=== PATIENT | female | born 1955 | race Caucasian/White ===

== ENCOUNTER 2017-02-13 21:29 | Inpatient (IN) | payer MEDICARE, OTHER ==
[~2017-02-13] VITALS: Ht 162.6 cm; Wt 68.3 kg
[~2017-02-13 21:29] MED LIST: ALBU90OI61 INH; ASPI81CH PO; ASPI81EC PO; CHOL10002; CILO100 PO; CILO50; CYAN100 PO; Complete Senio1 EACH PO; FLUSAL2505 INH; HYDACE5 PO; LACO50TA2 PO; LAMICTAL ODT200 MG PO; LAMO100 PO; LAMO25; Lamictal200 MG PO; Norco 5-325 Ta1 EACH PO; PLETAL100 MG PO; PRED10 PO; Prednisone10 M1 PO; SIMV5; SIMV80 PO; TIOT18; VITAMIN D-32000 UNI1 PO; Vimpat150 MG PO; [UNRECOGNIZED DRUG - REMARK]
[2017-02-13] MEDS ORDERED: CYAN500 PO (21:52)
[2017-02-13 22:18] LABS: BASOPHILS ABSOLUTE AUTO 0.02 K/mm3 (0.00-0.23); BASOPHILS PERCENT AUTO 0 % (0-2); EOSINOPHILS ABSOLUTE AUTO 0.05 K/mm3 (0.00-0.68); EOSINOPHILS PERCENT AUTO 0 % (0-6); Hematocrit 41.6 % (33.0-51.0); Hemoglobin 14.4 g/dL (11.5-16.0); IMMATURE GRAN ABSOLUTE AUTO 0.05 K/mm3 (0.00-0.10); IMMATURE GRAN PERCENT AUTO 0 % (0-1); LYMPHOCYTES ABSOLUTE AUTO 1.84 K/mm3 (0.84-5.20); LYMPHOCYTES PERCENT AUTO 14 % (21-46); MONOCYTES ABSOLUTE AUTO 1.78 K/mm3 (0.16-1.47); MONOCYTES PERCENT AUTO 14 % (4-13); Mean Corpuscular HGB 32.3 pg (26.0-34.0); Mean Corpuscular HGB Conc 34.6 g/dL (31.5-36.5); Mean Corpuscular Volume 93 fL (80-100); Mean Platelet Volume 10.8 fL (9.1-12.4); NEUTROPHILS ABSOLUTE AUTO 9.29 K/mm3 (1.96-9.15); NEUTROPHILS PERCENT AUTO 71 % (41-73); Platelet Count 196 K/mm3 (150-400); RDW Coefficient Variation 12.9 % (11.7-14.2); RDW Standard Deviation 43.9 fL (35.1-46.3); Red Blood Cell Count 4.46 M/mm3 (3.80-5.20); White Blood Cell Count 13.03 K/mm3 (4.00-11.30)
[2017-02-13 22:27] LABS: Alanine Aminotransfer (ALT/SGP 22 U/L (12-78); Albumin, Blood 3.7 g/dL (3.4-5.0); Alk Phos 70 U/L (50-136); Anion Gap 7 mmol/L (6-16); Aspartate Aminotrans (AST/SGOT 21 U/L (12-37); Bilirubin, Total 0.5 mg/dL (0.1-1.0); Blood Urea Nitrogen 9 mg/dL (8-24); Bun/Creatinine Ratio 13.3 (12.0-20.0); CO2, Blood 27 mmol/L (21-32); Calcium, Blood 8.7 mg/dL (8.5-10.1); Chloride, Blood 103 mmol/L (98-108); Creatinine, Blood 0.68 mg/dL (0.40-1.00); Globulin, Blood 3.6 g/dL (2.2-4.0); Glomerular Filtration Rate >60 (60-); Glucose, Blood 114 mg/dL (70-99); Potassium, Blood 3.4 mmol/L (3.5-5.5); Sodium, Blood 137 mmol/L (136-145); Total Protein, Blood 7.3 g/dL (6.4-8.2); Troponin I <0.015 ng/mL (0.000-0.040)
[2017-02-13 22:30] LABS: Base Excess Venous -7.1 mmol/L; Bicarbonate Venous 19.3 mmol/L (24.0-30.0); PCO2 Venous 24.9 mmHg (38-42); PO2 Venous 128 mmHg (38-42); pH Blood Venous 7.44 (7.34-7.37)
[2017-02-14] MEDS ORDERED: Vimpat150 MG PO (00:38)
--- NOTE | 2017-02-14 02:13 | NUR ---
0028 PT ARRIVED TO ROOM FROM ER VIA GURNEY IN STABLE CONDITION. PT REPORTS SOB THAT INCREASES WITH EXERTION, ON 2L O2 NC AT 91%, ALTHOUGH PT THINKS THIS IS JUST A COLD OR POSSBILY HER HEART, SHE DOES NOT UNDERSTAND THAT SHE HAS COPD. PT HAS A PRODUCTIVE COUGH, SPUTUM NOT SEEN YET. DENIES ANY OTHER DISCOMFORT AT THIS TIME. PT DOES SHOW SOME ANXIETY, ESPECIALLY WITH HOW SHE TAKES HER MEDS AND THE MEDS SHE TAKES. VERIFIED HER MEDS AND MED TIMES CAREFULLY AND WILL MAKE SURE THAT THEY ARE ORDERED THE WAY SHE TAKES THEM. NO OTHER SIGNS OF DISTRESS. CALL LIGHT IS IN REACH.
--- NOTE | 2017-02-14 03:31 | NUR ---
PT LYING IN BED, EYES CLOSED, APPEARS TO BE RESTING. WAKES EASILY TO VERBAL STIMULI. XRAY HERE TO HEEL STAINER PT FOR HER CHEST X RAY. NO APPARENT SIGNS OF DISTRESS. CALL LIGHT IS IN REACH.
[2017-02-14 05:08] LABS: BASOPHILS PERCENT AUTO 0 % (0-2); EOSINOPHILS PERCENT AUTO 0 % (0-6); Hematocrit 36.2 % (33.0-51.0); IMMATURE GRAN ABSOLUTE AUTO 0.02 K/mm3 (0.00-0.10); IMMATURE GRAN PERCENT AUTO 0 % (0-1); LYMPHOCYTES ABSOLUTE AUTO 0.46 K/mm3 (0.84-5.20); LYMPHOCYTES PERCENT AUTO 5 % (21-46); MONOCYTES ABSOLUTE AUTO 0.26 K/mm3 (0.16-1.47); MONOCYTES PERCENT AUTO 3 % (4-13); Mean Corpuscular HGB 31.7 pg (26.0-34.0); Mean Corpuscular HGB Conc 33.1 g/dL (31.5-36.5); Mean Platelet Volume 10.4 fL (9.1-12.4); NEUTROPHILS ABSOLUTE AUTO 9.36 K/mm3 (1.96-9.15); NEUTROPHILS PERCENT AUTO 93 % (41-73); Platelet Count 173 K/mm3 (150-400); RDW Coefficient Variation 13.2 % (11.7-14.2); RDW Standard Deviation 46.2 fL (35.1-46.3); Red Blood Cell Count 3.79 M/mm3 (3.80-5.20)
[2017-02-14 05:14] LABS: Mean Corpuscular Volume 96 fL (80-100)
[2017-02-14 05:58] LABS: Anion Gap 8 mmol/L (6-16); Blood Urea Nitrogen 8 mg/dL (8-24); Bun/Creatinine Ratio 13.9 (12.0-20.0); CO2, Blood 24 mmol/L (21-32); Calcium, Blood 8.1 mg/dL (8.5-10.1); Chloride, Blood 105 mmol/L (98-108); Creatinine, Blood 0.57 mg/dL (0.40-1.00); Glomerular Filtration Rate >60 (60-); Glucose, Blood 182 mg/dL (70-99); Potassium, Blood 3.4 mmol/L (3.5-5.5); Sodium, Blood 137 mmol/L (136-145)
--- NOTE | 2017-02-14 06:05 | NUR ---
0200 PT LYING IN BED, EYES CLOSED, APPEARS TO BE RESTING. BREATHING IS EVEN, UNLABORED. NO APPARENT SIGNS OF DISTRESS. CALL LIGHT IS IN REACH.
--- NOTE | 2017-02-14 06:05 | NUR ---
PT LYING IN BED, EYES CLOSED, APPEARS TO BE RESTING. BREATHING IS EVEN, UNLABORED. NO APPARENT SIGNS OF DISTRESS. CALL LIGHT IS IN REACH. NO OTHER CHANGES THIS SHIFT.
--- NOTE | 2017-02-14 07:32 | NUR ---
PT MOSTLY AAO X 3, A LITTLE SLOW, A LOT OF ANXIETY/OCD REGARDING MEDICATIONS, HX OF TBI. PT WAS ON 2L ON ARRIVAL TO FLOOR BUT IS NOW ON RA IN LOW 90'S. TELE SLIGHT ST. VISIBLE SOB BUT PT DENIES SOB. DENIES ANY OTHER DISCOMFORT FOR THIS SHIFT. PT DOES NOT APPEAR TO UNDERSTAND SHE HAS COPD, STATES SHE DOES NOT USE HER INHALER AT HOME BECAUSE SHE DOES NOT HAVE COPD OR HAVE ANYTHING WRONG WITH HER BREATHING. PT REPORTS SHE THINKS THERE IS SOMETHING WRONG WITH HER HEART WHEN SHE WALKS TOO FAR HER HEART RACES.
--- NOTE | 2017-02-14 09:00 | NUR ---
ASSUMED CARE / ASSESSMENT PT IS ALERT IN ROOM JUST FINISHING UP BREAKFAST. SHE IS ALERT AND ORIENTED, BUT VERY PARTICULAR ABOUT HER CARE AND HER PILLS. VITALS ARE STABLE THIS AM. SHE WAS GIVEN HER SOLUMEDROL IV THIS AM AND REFUSED TO HAVE ANY OTHER MEDICATIONS. SHE ALSO REFUSED TO HAVE HER DVT MEDICATION AND REFUSED TO HAVE PAS STOCKINGS OR POSSIBLY LOVENOX FOR DVT PREVENTION. WILL DISCUSS WITH MD WHEN IN TO SEE PT. SHE IS REQUESTING TO HAVE SOME VICKS TO RUB ON HER CHEST, BUT DOES NOT WANT COUGH DROPS BECAUSE THEY DON'T WORK. PT WAS GIVEN FRESH WATER AND DID NOT HAVE ANY OTHER REQUESTS WHEN THIS RN LEFT ROOM. WILL CON'T TO MONITOR AND KEEP PT SAFE.
--- NOTE | 2017-02-14 10:12 | NUR ---
DR SHEILA SOSA IN TO SEE PT THIS AM. HE DID HAVE SOME QUESTIONS REGARDING HER MEDICATIONS. WILL IMPLEMENT ANY NEW ORDERS.
--- NOTE | 2017-02-14 15:53 | NUR ---
ASSESSMENT PT'S SISTER HAS BEEN WITH HER FOR MOST OF THE AFTERNOON. PT JUST NOW RETURNED FROM A WALK WITH HER SISTER. SHE SEEMS TO BE IN GOOD SPIRITS WITH HER SISTER HEAR. DR KNUTSON STOPPED IN TO SEE PT. STATES SHE IS HER PATIENT OUT SIDE THE HOSPITAL. SHE ALSO ASKED THIS RN TO ORDERED CLARTIN FOR THE PT PRN. WILL IMPLEMENT THIS ORDER. PT CON'T TO HAVE A COUGH, BUT IS NON-PRODUCTIVE. WILL CON'T TO MONITOR AND KEEP PT SAFE T/O REMAINDER OF SHIFT.
--- NOTE | 2017-02-15 00:30 | NUR ---
PT AWAKE AT START OF SHIFT, SITTING UP IN BED PLAYING CARDS ON THE COMPUTER. MEDS GIVEN PER EMAR, PT REQUEST. PT REQUESTED VICKS RUBBED ONTO CHEST AT HS WITH TOWEL PLACED AROUND NECK. DONE PER PT REQUEST. PT RESTING QUIETLY WATCHING TV AT THIS TIME. CALL LT IN REACH. ABLE TO MAKE NEEDS KNOWN.
[2017-02-15 05:41] LABS: Anion Gap 5 mmol/L (6-16); Blood Urea Nitrogen 15 mg/dL (8-24); Bun/Creatinine Ratio 23.7 (12.0-20.0); CO2, Blood 27 mmol/L (21-32); Calcium, Blood 8.5 mg/dL (8.5-10.1); Chloride, Blood 109 mmol/L (98-108); Creatinine, Blood 0.63 mg/dL (0.40-1.00); Glomerular Filtration Rate >60 (60-); Glucose, Blood 120 mg/dL (70-99); Sodium, Blood 141 mmol/L (136-145)
--- NOTE | 2017-02-15 05:59 | NUR ---
SHIFT SUMMARY PT ACTUALLY VERY PLEASANT AT START OF SHIFT. CO-OP WITH PLANT TECHNICAL SPECIALIST TONIGHT WELL. WENT TO SLEEP AFTER MN MEDS GIVEN. PT WOKE JUST RECENTLY, SITTING UP IN BED AND SCREAMING OUT. WHEN ASKED WHAT WAS WRONG, PT JUST STARTED CURSING AT STAFF. "I DON'T KNOW WHAT'S WRONG...". PT FINALLY CALMING DOWN SOME NOW. POSSIBLE HALLUCINATIONS. NO C/O PAIN. NO ACUTE RESP DISTRESS. PT IS AGITATED AND UNCO-OP AT THIS TIME. WILL MONITOR. CALL LT IN REACH.
--- NOTE | 2017-02-15 15:44 | NUR ---
PATIENT STARTED ON ATIVAN, ANXIETY HAS NOTICEABLY DECREASED. COMPLAINED OF PAIN THIS AM PRIOR TO SEEING DR. SOSA, NO FURTHER COMPLAINTS OF PAIN AFTER DR. LEBRON THIS MORNING. TYLENOL WAS OFFERED IN AM BUT PATIENT DECLINED IT. SISTER AT BEDSIDE THIS AM. PATIENT HAS SOME SHAKING IN HANDS, STATES THIS IS A NEW SYMPTOM, AWARE (SEE DR. SOSA NOTE 02/15/2017).
--- NOTE | 2017-02-16 05:46 | NUR ---
02/16/17 0545 WAKENED FREQUENTLY WITH COUGHING EPISODES. PAGED FOR COUGH SUPPRESANT AND GIVEN TESSALON 200 MG PO AT THIS TIME. REPOSITIONED IN BED FOR COMFORT. WAS UP TO BATHROOM WITH HELP OF PROGRAMMING DIRECTOR. PT REFUSED TO WEAR NON-SLIP BOOTIES TO WALK TO BR. PT SLIGHTLY UNSTEADY ON FEET.
--- NOTE | 2017-02-16 09:48 | NUR ---
PATIENT IS ALERT AND ORIENTED AND CALLS AND APPROPRATELY. PATIENT IS COOPERATIVE WITH CARE AND IS AMBULATORY WITH STAND BY ASSISTANCE. PATIENT IS A LITTLE SHAKY AND UNSTEADY THIS SHIFT WHEN WALKING. PATIENT IS COUGHING THIS SHIFT BUT NOTHING IS BEING COUGHED UP AT THIS TIME. RN IS AWARE OF COUGH.
[2017-02-16] MEDS ORDERED: DULERA 200 MCG/13 GM INH (14:43)
[2017-02-16] MEDS ORDERED: Tessalon200 MG PO (14:43)
[2017-02-16] MEDS ORDERED: (None)20 M1 PO (14:44)
[2017-02-16] MEDS ORDERED: TIOT18 INH (14:45)
--- NOTE | 2017-02-16 16:15 | NUR ---
PATIENT DISCHARGED TO HOME WITH SISTER. ALL NEW MEDICATIONS EXPLAINED. INFORMATION PACKETS GIVE FOR NEW MEDICATIONS. ALL QUESTIONS ANSWERED. HOME MEDICATIONS GIVEN BACK TO PATIENT. IV ACCESS REMOVED. ESCORTED OUT VIA WHEELCHAIR WITH HERIBERTO
== END 2017-02-16 15:34 | disposition home or self-care (01) | DRG 189 ==
LOC: ER 21:29 → MEDS 21:30
PROVIDERS: Emergency Medicine; Internal Medicine; ADMIT Internal Medicine
DX: J96.01 Acute respiratory failure with hypoxia (principal); J44.0 Chronic obstructive pulmonary disease with (acute) lower respiratory infection; J98.11 Atelectasis; J44.1 Chronic obstructive pulmonary disease with (acute) exacerbation; J96.22 Acute and chronic respiratory failure with hypercapnia; F41.8 Other specified anxiety disorders; J20.8 Acute bronchitis due to other specified organisms; F60.9 Personality disorder, unspecified; G40.909 Epilepsy, unspecified, not intractable, without status epilepticus; E87.6 Hypokalemia; Z87.891 Personal history of nicotine dependence; Z79.82 Long term (current) use of aspirin; Z79.899 Other long term (current) drug therapy
CPT/HCPCS: 36415; 71010; 71020; 80048; 80053; 82803; 83880; 84145; 84484; 85025; 93005; 93010; 94640; 94760; 96365; 96366; 96368; 96375; 97163; 99285; C9113; G8978; G8979; J0696; J2001; J2920; J2930; J3475; J3480; J7030; J7050

== ENCOUNTER 2017-03-14 13:15 | Inpatient (IN) | payer MEDICARE, OTHER ==
[~2017-03-14] VITALS: Ht 162.6 cm; Wt 71.9 kg
[~2017-03-14 13:15] MED LIST changes: +(None)20 M1 PO; +CYAN500 PO; +DULERA 200 MCG/13 GM INH; +TIOT18 INH; +Tessalon200 MG PO
[2017-03-14 14:14] LABS: BASOPHILS PERCENT AUTO 0 % (0-2); EOSINOPHILS ABSOLUTE AUTO 0.01 K/mm3 (0.00-0.68); EOSINOPHILS PERCENT AUTO 0 % (0-6); Hematocrit 39.9 % (33.0-51.0); Hemoglobin 13.6 g/dL (11.5-16.0); IMMATURE GRAN PERCENT AUTO 0 % (0-1); LYMPHOCYTES ABSOLUTE AUTO 1.72 K/mm3 (0.84-5.20); LYMPHOCYTES PERCENT AUTO 48 % (21-46); MONOCYTES ABSOLUTE AUTO 0.85 K/mm3 (0.16-1.47); MONOCYTES PERCENT AUTO 24 % (4-13); Mean Corpuscular HGB 31.7 pg (26.0-34.0); Mean Corpuscular HGB Conc 34.1 g/dL (31.5-36.5); Mean Corpuscular Volume 93 fL (80-100); NEUTROPHILS PERCENT AUTO 28 % (41-73); Platelet Count 176 K/mm3 (150-400); RDW Coefficient Variation 12.9 % (11.7-14.2); RDW Standard Deviation 43.2 fL (35.1-46.3); Red Blood Cell Count 4.29 M/mm3 (3.80-5.20); White Blood Cell Count 3.58 K/mm3 (4.00-11.30)
[2017-03-14 14:30] LABS: PCO2 Arterial 42.9 mmHg (35-45); PO2 Arterial 45.1 mmHg (80-100); pH Blood Arterial 7.42 (7.35-7.45)
[2017-03-14 14:33] LABS: Troponin I <0.015 ng/mL (0.000-0.040)
[2017-03-14 14:34] LABS: Alanine Aminotransfer (ALT/SGP 22 U/L (12-78); Albumin, Blood 3.3 g/dL (3.4-5.0); Albumin/Globulin Ratio 1.1 (0.8-1.8); Alk Phos 50 U/L (50-136); Anion Gap 8 mmol/L (6-16); Aspartate Aminotrans (AST/SGOT 28 U/L (12-37); Bilirubin, Total 0.3 mg/dL (0.1-1.0); Blood Urea Nitrogen 12 mg/dL (8-24); Bun/Creatinine Ratio 13.2 (12.0-20.0); CO2, Blood 28 mmol/L (21-32); Calcium, Blood 8.4 mg/dL (8.5-10.1); Chloride, Blood 98 mmol/L (98-108); Creatinine, Blood 0.91 mg/dL (0.40-1.00); Globulin, Blood 3.1 g/dL (2.2-4.0); Glomerular Filtration Rate >60 (60-); Glucose, Blood 108 mg/dL (70-99); Potassium, Blood 3.4 mmol/L (3.5-5.5); Sodium, Blood 134 mmol/L (136-145); Total Protein, Blood 6.4 g/dL (6.4-8.2)
[2017-03-14 15:09] LABS: Influenza A Negative (NEGATIVE); Influenza B Positive (NEGATIVE)
[2017-03-14] MEDS ORDERED: CILO100 PO (18:48)
[2017-03-15 05:25] LABS: BASOPHILS PERCENT AUTO 0 % (0-2); EOSINOPHILS PERCENT AUTO 0 % (0-6); Hematocrit 38.2 % (33.0-51.0); Hemoglobin 12.9 g/dL (11.5-16.0); IMMATURE GRAN PERCENT AUTO 0 % (0-1); LYMPHOCYTES ABSOLUTE AUTO 0.58 K/mm3 (0.84-5.20); LYMPHOCYTES PERCENT AUTO 36 % (21-46); MONOCYTES ABSOLUTE AUTO 0.08 K/mm3 (0.16-1.47); MONOCYTES PERCENT AUTO 5 % (4-13); Mean Corpuscular HGB 31.5 pg (26.0-34.0); Mean Corpuscular HGB Conc 33.8 g/dL (31.5-36.5); Mean Corpuscular Volume 93 fL (80-100); Mean Platelet Volume 9.6 fL (9.1-12.4); NEUTROPHILS ABSOLUTE AUTO 0.97 K/mm3 (1.96-9.15); NEUTROPHILS PERCENT AUTO 60 % (41-73); Platelet Count 166 K/mm3 (150-400); RDW Coefficient Variation 12.8 % (11.7-14.2); RDW Standard Deviation 43.7 fL (35.1-46.3); White Blood Cell Count 1.63 K/mm3 (4.00-11.30)
[2017-03-15 05:50] LABS: Albumin, Blood 3.2 g/dL (3.4-5.0); Anion Gap 8 mmol/L (6-16); Blood Urea Nitrogen 13 mg/dL (8-24); CO2, Blood 26 mmol/L (21-32); Calcium, Blood 8.4 mg/dL (8.5-10.1); Chloride, Blood 104 mmol/L (98-108); Creatinine, Blood 0.68 mg/dL (0.40-1.00); Glomerular Filtration Rate >60 (60-); Glucose, Blood 129 mg/dL (70-99); Phosphorus, Blood 3.4 mg/dL (2.5-4.9); Potassium, Blood 3.9 mmol/L (3.5-5.5); Sodium, Blood 138 mmol/L (136-145)
[2017-03-16 04:16] LABS: BASOPHILS PERCENT AUTO 0 % (0-2); EOSINOPHILS PERCENT AUTO 0 % (0-6); Hematocrit 38.7 % (33.0-51.0); Hemoglobin 12.9 g/dL (11.5-16.0); IMMATURE GRAN ABSOLUTE AUTO 0.02 K/mm3 (0.00-0.10); IMMATURE GRAN PERCENT AUTO 0 % (0-1); LYMPHOCYTES ABSOLUTE AUTO 0.85 K/mm3 (0.84-5.20); LYMPHOCYTES PERCENT AUTO 10 % (21-46); MONOCYTES ABSOLUTE AUTO 1.15 K/mm3 (0.16-1.47); MONOCYTES PERCENT AUTO 14 % (4-13); Mean Corpuscular HGB 31.7 pg (26.0-34.0); Mean Corpuscular HGB Conc 33.3 g/dL (31.5-36.5); Mean Corpuscular Volume 95 fL (80-100); Mean Platelet Volume 9.6 fL (9.1-12.4); NEUTROPHILS ABSOLUTE AUTO 6.36 K/mm3 (1.96-9.15); NEUTROPHILS PERCENT AUTO 76 % (41-73); Platelet Count 155 K/mm3 (150-400); RDW Standard Deviation 45.5 fL (35.1-46.3); Red Blood Cell Count 4.07 M/mm3 (3.80-5.20); White Blood Cell Count 8.38 K/mm3 (4.00-11.30)
[2017-03-16 04:29] LABS: Albumin, Blood 2.8 g/dL (3.4-5.0); Anion Gap 6 mmol/L (6-16); Blood Urea Nitrogen 16 mg/dL (8-24); CO2, Blood 27 mmol/L (21-32); Calcium, Blood 7.8 mg/dL (8.5-10.1); Chloride, Blood 107 mmol/L (98-108); Creatinine, Blood 0.64 mg/dL (0.40-1.00); Glomerular Filtration Rate >60 (60-); Glucose, Blood 118 mg/dL (70-99); Phosphorus, Blood 3.4 mg/dL (2.5-4.9); Potassium, Blood 4.7 mmol/L (3.5-5.5); Sodium, Blood 140 mmol/L (136-145)
[2017-03-17 04:17] LABS: BASOPHILS PERCENT AUTO 0 % (0-2); EOSINOPHILS PERCENT AUTO 0 % (0-6); Hematocrit 35.8 % (33.0-51.0); Hemoglobin 11.7 g/dL (11.5-16.0); IMMATURE GRAN ABSOLUTE AUTO 0.02 K/mm3 (0.00-0.10); IMMATURE GRAN PERCENT AUTO 0 % (0-1); LYMPHOCYTES ABSOLUTE AUTO 0.58 K/mm3 (0.84-5.20); LYMPHOCYTES PERCENT AUTO 9 % (21-46); MONOCYTES ABSOLUTE AUTO 0.38 K/mm3 (0.16-1.47); MONOCYTES PERCENT AUTO 6 % (4-13); Mean Corpuscular HGB 31.5 pg (26.0-34.0); Mean Corpuscular HGB Conc 32.7 g/dL (31.5-36.5); Mean Corpuscular Volume 97 fL (80-100); Mean Platelet Volume 9.4 fL (9.1-12.4); NEUTROPHILS ABSOLUTE AUTO 5.36 K/mm3 (1.96-9.15); NEUTROPHILS PERCENT AUTO 85 % (41-73); Platelet Count 162 K/mm3 (150-400); RDW Coefficient Variation 13.2 % (11.7-14.2); RDW Standard Deviation 46.5 fL (35.1-46.3); Red Blood Cell Count 3.71 M/mm3 (3.80-5.20); White Blood Cell Count 6.34 K/mm3 (4.00-11.30)
[2017-03-17 04:38] LABS: Anion Gap 4 mmol/L (6-16); Blood Urea Nitrogen 13 mg/dL (8-24); Bun/Creatinine Ratio 22.3 (12.0-20.0); CO2, Blood 30 mmol/L (21-32); Calcium, Blood 7.8 mg/dL (8.5-10.1); Chloride, Blood 106 mmol/L (98-108); Creatinine, Blood 0.58 mg/dL (0.40-1.00); Glomerular Filtration Rate >60 (60-); Glucose, Blood 118 mg/dL (70-99); Potassium, Blood 4.1 mmol/L (3.5-5.5); Sodium, Blood 140 mmol/L (136-145)
[2017-03-20] MEDS ORDERED: GUAI600T33 PO (11:28)
[2017-03-20] MEDS ORDERED: Azithromycin250 MG PO (11:28)
== END 2017-03-20 18:30 | disposition home or self-care (01) | DRG 189 ==
LOC: ER 13:15 → PCU 16:02 → MEDS 16:02 → ICUW 03-15 22:19 → PCU 03-17 15:19 → MEDS 03-18 16:06 → ENPENDDIS 03-20 10:30 → MEDS 03-20 18:30
PROVIDERS: Emergency Medicine; Family Medicine; Hospitalist
DX: J96.01 Acute respiratory failure with hypoxia (principal); E87.1 Hypo-osmolality and hyponatremia; J44.1 Chronic obstructive pulmonary disease with (acute) exacerbation; F10.239 Alcohol dependence with withdrawal, unspecified; G40.909 Epilepsy, unspecified, not intractable, without status epilepticus; I73.9 Peripheral vascular disease, unspecified; E55.9 Vitamin D deficiency, unspecified; J10.1 Influenza due to other identified influenza virus with other respiratory manifestations; E87.6 Hypokalemia; Z79.82 Long term (current) use of aspirin; Z79.899 Other long term (current) drug therapy; Z87.891 Personal history of nicotine dependence
CPT/HCPCS: 36415; 36600; 71020; 74000; 80048; 80053; 80069; 82803; 83605; 83880; 84484; 85025; 87040; 87070; 87205; 87804; 93005; 93010; 94640; 94644; 94760; 94761; 94762; 96374; 99285; J0696; J1630; J1650; J2060; J2405; J2930; J3480; J7040; J7050; J7120

== ENCOUNTER → 2020-07-05 | Outpatient (CLI) | payer MEDICARE, OTHER ==
[~2020-07-05] MED LIST changes: +Azithromycin250 MG PO; +GUAI600T33 PO
[2020-07-05 17:27] LABS: BASOPHILS ABSOLUTE AUTO 0.04 K/mm3 (0.00-0.23); BASOPHILS PERCENT AUTO 1 % (0-2); EOSINOPHILS ABSOLUTE AUTO 0.11 K/mm3 (0.00-0.68); EOSINOPHILS PERCENT AUTO 2 % (0-6); Hematocrit 47.1 % (33.0-51.0); Hemoglobin 16.2 g/dL (11.5-16.0); IMMATURE GRAN ABSOLUTE AUTO 0.01 K/mm3 (0.00-0.10); IMMATURE GRAN PERCENT AUTO 0 % (0-1); LYMPHOCYTES PERCENT AUTO 20 % (21-46); MONOCYTES ABSOLUTE AUTO 0.68 K/mm3 (0.16-1.47); MONOCYTES PERCENT AUTO 10 % (4-13); Mean Corpuscular HGB 32.1 pg (26.0-34.0); Mean Corpuscular HGB Conc 34.4 g/dL (31.5-36.5); Mean Corpuscular Volume 93 fL (80-100); Mean Platelet Volume 10.5 fL (9.1-12.4); NEUTROPHILS ABSOLUTE AUTO 4.72 K/mm3 (1.96-9.15); NEUTROPHILS PERCENT AUTO 68 % (41-73); Platelet Count 202 K/mm3 (150-400); RDW Standard Deviation 44.1 fL (35.1-46.3); Red Blood Cell Count 5.05 M/mm3 (3.80-5.20); White Blood Cell Count 6.96 K/mm3 (4.00-11.30)
[2020-07-05 17:30] LABS: Anion Gap 9 mmol/L (6-16); Blood Urea Nitrogen 21 mg/dL (8-24); Bun/Creatinine Ratio 23.6 (12.0-20.0); CO2, Blood 29 mmol/L (21-32); Calcium, Blood 9.8 mg/dL (8.5-10.1); Chloride, Blood 101 mmol/L (98-108); Creatinine, Blood 0.89 mg/dL (0.40-1.00); Glomerular Filtration Rate >60 (60-); Glucose, Blood 106 mg/dL (70-99); Potassium, Blood 3.6 mmol/L (3.5-5.5); Sodium, Blood 139 mmol/L (136-145)
== END | disposition home or self-care (01) ==
LOC: LAB SHORT 17:16
PROVIDERS: Physician Assistant Surgical
DX: R06.00 Dyspnea, unspecified (principal)
CPT/HCPCS: 80048; 83880; 85025; 85379

== ENCOUNTER 2020-09-19 07:03 | Day surgery (SDC) | payer MEDICARE, OTHER ==
[~2020-09-19] VITALS: Wt 73.6 kg
--- NOTE | 2020-09-19 07:50 | NUR ---
Ambulatory in Day Surgery. REPORTS SOB WITH EXCERTION BUT BETTER AFTER REST. LS CLEAR, NO WHEEZING NOTED. Patient states colon prep results clear. History, Chart, Medications and Allergies reviewed before start of procedure. Patient confirms NPO status and agrees with scheduled surgery. Pre-Op teaching done. Pt verbalizes understanding.
--- NOTE | 2020-09-19 08:26 | NUR ---
09/19/20 0826 Derrick Lowry History, Chart, Medications and Allergies reviewed before start of procedure. MONITOR INTACT WITH CONTINUOUS PULSE OXIMETRY AND INTERMITTENT BP. 3-LEAD EKG REVIEWED WITH PHYSICIAN PRIOR TO START OF PROCEDURE. O2 VIA N/C INTACT THROUGHOUT SEDATION/PROCEDURE. PATIENT DETERMINED TO BE ASA APPROPRIATE FOR PROPOFOL SEDATION PRIOR TO START OF PROCEDURE BY DR. NAYAK.
--- NOTE | 2020-09-19 08:58 | NUR ---
Discharge instructions reviewed with patient. Patient verbalizes understanding. Copy given to patient to take home. Patient States Post-Procedure ride home has been arranged. Discharged via wheelchair to private car for ride home. AWAITING PT SON TO GIVE RIDE HOME
== END 2020-09-19 22:49 | disposition home or self-care (01) ==
LOC: ORSCMMR 07:03 → ORD 08:00 → ORSCMMR 08:00
PROVIDERS: Internal Medicine Gastroenterology
PROC: 0DBK8ZX Excision of Ascending Colon, Via Natural or Artificial Opening Endoscopic, Diagnostic (ICD-10-PCS; principal; 2020-09-19 08:00)
DX: Z12.11 Encounter for screening for malignant neoplasm of colon (principal); Z86.010 Personal history of colon polyps; Z80.0 Family history of malignant neoplasm of digestive organs; D12.2 Benign neoplasm of ascending colon; J44.9 Chronic obstructive pulmonary disease, unspecified; E78.00 Pure hypercholesterolemia, unspecified; Z79.899 Other long term (current) drug therapy; Z79.82 Long term (current) use of aspirin; Z87.891 Personal history of nicotine dependence
CPT/HCPCS: 88305; J2704; J7120

== ENCOUNTER 2021-07-13 09:19 | Inpatient (IN) | payer MEDICARE, OTHER ==
[~2021-07-13] VITALS: Ht 162.6 cm; Wt 67.3 kg
[~2021-07-13 09:19] MED LIST changes: -VITAMIN D-32000 UNI1 PO; +VITAMIN D31000 UNI1 PO
[2021-07-13 09:55] LABS: Base Excess Venous 7.1 mmol/L; Bicarbonate Venous 28.4 mmol/L (24.0-30.0); PCO2 Venous 58.2 mmHg (38-42); PO2 Venous 49.8 mmHg (38-42); pH Blood Venous 7.36 (7.34-7.37)
[2021-07-13 09:59] LABS: BASOPHILS ABSOLUTE AUTO 0.02 K/mm3 (0.00-0.23); BASOPHILS PERCENT AUTO 0 % (0-2); EOSINOPHILS ABSOLUTE AUTO 0.11 K/mm3 (0.00-0.68); EOSINOPHILS PERCENT AUTO 2 % (0-6); Hematocrit 48.6 % (33.0-51.0); Hemoglobin 15.8 g/dL (11.5-16.0); IMMATURE GRAN ABSOLUTE AUTO 0.01 K/mm3 (0.00-0.10); IMMATURE GRAN PERCENT AUTO 0 % (0-1); LYMPHOCYTES ABSOLUTE AUTO 1.55 K/mm3 (0.84-5.20); LYMPHOCYTES PERCENT AUTO 26 % (21-46); MONOCYTES ABSOLUTE AUTO 1.18 K/mm3 (0.16-1.47); MONOCYTES PERCENT AUTO 20 % (4-13); Mean Corpuscular HGB 31.9 pg (26.0-34.0); Mean Corpuscular HGB Conc 32.5 g/dL (31.5-36.5); Mean Corpuscular Volume 98 fL (80-100); NEUTROPHILS ABSOLUTE AUTO 3.07 K/mm3 (1.96-9.15); NEUTROPHILS PERCENT AUTO 52 % (41-73); Platelet Count 148 K/mm3 (150-400); RDW Coefficient Variation 13.5 % (11.7-14.2); RDW Standard Deviation 49.2 fL (35.1-46.3); Red Blood Cell Count 4.96 M/mm3 (3.80-5.20); White Blood Cell Count 5.94 K/mm3 (4.00-11.30)
[2021-07-13 10:13] LABS: Alanine Aminotransfer (ALT/SGP 42 U/L (12-78); Albumin, Blood 3.1 g/dL (3.4-5.0); Alk Phos 51 U/L (50-136); Anion Gap 8 mmol/L (6-16); Aspartate Aminotrans (AST/SGOT 67 U/L (12-37); Bilirubin, Total 0.5 mg/dL (0.1-1.0); Blood Urea Nitrogen 25 mg/dL (8-24); Bun/Creatinine Ratio 30.6 (12.0-20.0); CO2, Blood 30 mmol/L (21-32); Calcium, Blood 8.3 mg/dL (8.5-10.1); Chloride, Blood 101 mmol/L (98-108); Creatinine, Blood 0.82 mg/dL (0.40-1.00); Globulin, Blood 3.1 g/dL (2.2-4.0); Glomerular Filtration Rate >60 (60-); Glucose, Blood 115 mg/dL (70-99); Potassium, Blood 4.1 mmol/L (3.5-5.5); Sodium, Blood 139 mmol/L (136-145); Total Protein, Blood 6.2 g/dL (6.4-8.2)
[2021-07-13 10:33] LABS: Influenza A, PCR NEGATIVE (NEGATIVE); Influenza B, PCR NEGATIVE (NEGATIVE); Resp Syncytial Virus, PCR NEGATIVE (NEGATIVE); SARS-Cov-2 (COVID-19) PCR, MMC POSITIVE (NEGATIVE)
[2021-07-13] MEDS ORDERED: DILT180 PO (16:07)
--- NOTE | 2021-07-13 16:58 | NUR ---
PT ADMITTED TO ROOM 332. PT A/O X4 ONE PERSON ASSIST WITH WALKER. SON AKIL PRESENT AT ADMISSION. PT ON AIRVO 40/40 SETTINGS. SOB WITH EXERTION AND SPEAKING LONG SENTENCES. LS CLEAR/DIM DELANO. PT ORIENTED TO RM/CALL LIGHT. BED ALARM ON AND CALL LIGHT IN REACH.
[2021-07-14 04:46] LABS: BASOPHILS ABSOLUTE AUTO 0.01 K/mm3 (0.00-0.23); BASOPHILS PERCENT AUTO 0 % (0-2); EOSINOPHILS PERCENT AUTO 0 % (0-6); Hematocrit 49.5 % (33.0-51.0); Hemoglobin 16.4 g/dL (11.5-16.0); IMMATURE GRAN ABSOLUTE AUTO 0.03 K/mm3 (0.00-0.10); IMMATURE GRAN PERCENT AUTO 1 % (0-1); LYMPHOCYTES ABSOLUTE AUTO 0.56 K/mm3 (0.84-5.20); LYMPHOCYTES PERCENT AUTO 10 % (21-46); MONOCYTES PERCENT AUTO 7 % (4-13); Mean Corpuscular HGB 32.1 pg (26.0-34.0); Mean Corpuscular HGB Conc 33.1 g/dL (31.5-36.5); Mean Corpuscular Volume 97 fL (80-100); Mean Platelet Volume 10.2 fL (9.1-12.4); NEUTROPHILS ABSOLUTE AUTO 4.87 K/mm3 (1.96-9.15); NEUTROPHILS PERCENT AUTO 83 % (41-73); Platelet Count 146 K/mm3 (150-400); RDW Coefficient Variation 12.8 % (11.7-14.2); RDW Standard Deviation 46.1 fL (35.1-46.3); Red Blood Cell Count 5.11 M/mm3 (3.80-5.20); White Blood Cell Count 5.87 K/mm3 (4.00-11.30)
[2021-07-14 05:08] LABS: Alanine Aminotransfer (ALT/SGP 40 U/L (12-78); Albumin/Globulin Ratio 0.9 (0.8-1.8); Alk Phos 52 U/L (50-136); Anion Gap 5 mmol/L (6-16); Aspartate Aminotrans (AST/SGOT 44 U/L (12-37); Bilirubin, Total 0.3 mg/dL (0.1-1.0); Blood Urea Nitrogen 25 mg/dL (8-24); Bun/Creatinine Ratio 40.7 (12.0-20.0); CO2, Blood 32 mmol/L (21-32); Calcium, Blood 8.6 mg/dL (8.5-10.1); Chloride, Blood 100 mmol/L (98-108); Creatinine, Blood 0.62 mg/dL (0.40-1.00); Globulin, Blood 3.3 g/dL (2.2-4.0); Glomerular Filtration Rate >60 (60-); Glucose, Blood 154 mg/dL (70-99); Potassium, Blood 3.7 mmol/L (3.5-5.5); Sodium, Blood 137 mmol/L (136-145); Total Protein, Blood 6.3 g/dL (6.4-8.2)
--- NOTE | 2021-07-14 06:01 | NUR ---
SHIFT SUMMARY A/O X3. VITAL SIGNS STABLE. TOLERATING AIRVO, STATS REMAINING ABOVE 92%. BLADDER SCAN PERFORMED THIS AM AFTER PT STATED THAT SHE DID NOT NEED TO URINATE THROUGHOUT SHIFT, >1000ML IN BLADDER AT THAT TIME. PT STATED THAT SHE WOULD LIKE TO GET UP TO BSC AND TRY TO VOID. PT ABLE TO VOID 1200ML AT THAT TIME. NO PAIN REPORTED THROUGHOUT SHIFT. PT REMAINS ON TELE- NSR IN 70S. NO ACUTE CHANGES OVER NIGHT, WILL CONTINUE TO MONITOR AND REPORT TO ONCOMING RN.
[2021-07-15 05:28] LABS: BASOPHILS ABSOLUTE AUTO 0.01 K/mm3 (0.00-0.23); BASOPHILS PERCENT AUTO 0 % (0-2); EOSINOPHILS PERCENT AUTO 0 % (0-6); Hemoglobin 14.8 g/dL (11.5-16.0); IMMATURE GRAN ABSOLUTE AUTO 0.05 K/mm3 (0.00-0.10); IMMATURE GRAN PERCENT AUTO 1 % (0-1); LYMPHOCYTES ABSOLUTE AUTO 0.81 K/mm3 (0.84-5.20); LYMPHOCYTES PERCENT AUTO 8 % (21-46); MONOCYTES ABSOLUTE AUTO 0.92 K/mm3 (0.16-1.47); MONOCYTES PERCENT AUTO 9 % (4-13); Mean Corpuscular HGB 31.9 pg (26.0-34.0); Mean Corpuscular HGB Conc 32.9 g/dL (31.5-36.5); Mean Corpuscular Volume 97 fL (80-100); Mean Platelet Volume 10.3 fL (9.1-12.4); NEUTROPHILS ABSOLUTE AUTO 8.56 K/mm3 (1.96-9.15); NEUTROPHILS PERCENT AUTO 83 % (41-73); Platelet Count 177 K/mm3 (150-400); RDW Coefficient Variation 13.1 % (11.7-14.2); RDW Standard Deviation 46.6 fL (35.1-46.3); Red Blood Cell Count 4.64 M/mm3 (3.80-5.20); White Blood Cell Count 10.35 K/mm3 (4.00-11.30)
[2021-07-15 05:52] LABS: Alanine Aminotransfer (ALT/SGP 35 U/L (12-78); Albumin, Blood 2.9 g/dL (3.4-5.0); Alk Phos 45 U/L (50-136); Anion Gap 3 mmol/L (6-16); Aspartate Aminotrans (AST/SGOT 32 U/L (12-37); Bilirubin, Total 0.5 mg/dL (0.1-1.0); Blood Urea Nitrogen 23 mg/dL (8-24); Bun/Creatinine Ratio 38.7 (12.0-20.0); CO2, Blood 31 mmol/L (21-32); Calcium, Blood 8.6 mg/dL (8.5-10.1); Chloride, Blood 102 mmol/L (98-108); Creatinine, Blood 0.59 mg/dL (0.40-1.00); Globulin, Blood 2.9 g/dL (2.2-4.0); Glomerular Filtration Rate >60 (60-); Glucose, Blood 115 mg/dL (70-99); Potassium, Blood 3.6 mmol/L (3.5-5.5); Sodium, Blood 136 mmol/L (136-145); Total Protein, Blood 5.8 g/dL (6.4-8.2)
--- NOTE | 2021-07-15 17:59 | NUR ---
SHIFT SUMMARY PT A&OX3. REMAINS ON HI-FLOW O2 AT 35 L & 45%. CONTINUOUS SATS HOVER >90% BUT WILL DE-SAT TO 86-88% PERIODICALLY WITH EXERTION & TALKING. REMOVED THE 2 IV'S SHE STARTED THE SHIFT WITH. ONE WOULD NOT FLUSH AND THE OTHER WAS INFILTRATED. PLACED A NEW 20G IV X 1 ATTEMPT IN HER L FA. SHE SAT IN THE CHAIR AT BEDSIDE FOR APPROX 2 HRS IN THE MORNING. SHE WAS MIN ASSIST X1 TO GET IN THE CH. APPETITE HAS BEEN GOOD. VSS. LOW GRADE TEMP OF 99.0. THIS AFTERNOON HER SON VISITED.
[2021-07-16 06:11] LABS: BASOPHILS ABSOLUTE AUTO 0.01 K/mm3 (0.00-0.23); BASOPHILS PERCENT AUTO 0 % (0-2); EOSINOPHILS PERCENT AUTO 0 % (0-6); Hematocrit 43.7 % (33.0-51.0); Hemoglobin 14.3 g/dL (11.5-16.0); IMMATURE GRAN ABSOLUTE AUTO 0.07 K/mm3 (0.00-0.10); IMMATURE GRAN PERCENT AUTO 1 % (0-1); LYMPHOCYTES ABSOLUTE AUTO 0.44 K/mm3 (0.84-5.20); LYMPHOCYTES PERCENT AUTO 5 % (21-46); MONOCYTES ABSOLUTE AUTO 0.41 K/mm3 (0.16-1.47); MONOCYTES PERCENT AUTO 5 % (4-13); Mean Corpuscular HGB 31.9 pg (26.0-34.0); Mean Corpuscular HGB Conc 32.7 g/dL (31.5-36.5); Mean Corpuscular Volume 98 fL (80-100); Mean Platelet Volume 9.8 fL (9.1-12.4); NEUTROPHILS ABSOLUTE AUTO 7.69 K/mm3 (1.96-9.15); NEUTROPHILS PERCENT AUTO 89 % (41-73); Platelet Count 185 K/mm3 (150-400); RDW Coefficient Variation 13.4 % (11.7-14.2); Red Blood Cell Count 4.48 M/mm3 (3.80-5.20); White Blood Cell Count 8.62 K/mm3 (4.00-11.30)
[2021-07-16 06:30] LABS: Alanine Aminotransfer (ALT/SGP 40 U/L (12-78); Alk Phos 44 U/L (50-136); Anion Gap 4 mmol/L (6-16); Aspartate Aminotrans (AST/SGOT 38 U/L (12-37); Bilirubin, Total 0.6 mg/dL (0.1-1.0); Blood Urea Nitrogen 23 mg/dL (8-24); Bun/Creatinine Ratio 38.1 (12.0-20.0); C-REACTIVE PROTEIN, EXT RANGE 0.438 mg/dL (0.000-0.300); CO2, Blood 31 mmol/L (21-32); Calcium, Blood 8.8 mg/dL (8.5-10.1); Chloride, Blood 102 mmol/L (98-108); Globulin, Blood 2.9 g/dL (2.2-4.0); Glomerular Filtration Rate >60 (60-); Glucose, Blood 123 mg/dL (70-99); Potassium, Blood 4.1 mmol/L (3.5-5.5); Sodium, Blood 137 mmol/L (136-145); Total Protein, Blood 5.9 g/dL (6.4-8.2)
--- NOTE | 2021-07-16 06:43 | NUR ---
SHIFT SUMMARY PATIENT ALERT AND ORIENTED X3. AROUND 2344 HAD AN EPISODE WHERE SHE ENDED UP VOMITING, SHE BECAME CONFUSED AND AGITATED WITH GARBLED SPEECH AND APPEARED TO BE THROWING HERSELF AROUND THE BED. PATIENT HAS SINCE CLEARED AND RETURNED TO BASELINE. BED IN LOWEST POSITION WITH WHEELS LOCKED AND ALARM ON. CALL LIGHT WITHIN REACH. REPORT GIVEN TO ONCOMING RN.
--- NOTE | 2021-07-16 15:13 | NUR ---
Spoke with Primary RN Remington and discussed case. Pt willing to have home O2 now. Pt resting in chair and on AIRVO. Pt's son Chip at bedside. Pt struggles with understanding this RN wearing N99 mask. Pt confirms living alone and has a brother and sister in law that live nearbye. Gentle education on disease process including trajectory of disease. Discussed the importance of routine conversations with PCP and developing plans for the future as disease prgresses. Chip reports Pt is now willing to have oxygen at home and is willing to comply with recommendations. He reports she had O2 but did not need it any further. Continued therapeutic listening. Discussed the need to consider hospice at somepoint in the future. Chip reports plan to have further discussions and relay information to Pt. Pt and son express appreciation and report no other concerns at this time. Palliative Care will remain available.
--- NOTE | 2021-07-16 17:14 | NUR ---
PT IS A/OX3, PAMUNKEY. PT IS COOPERATIVE CAN BE EASILY IRRITATED WITH HER CARE. THE PT IS UP WITH ASSIST BECOMES VERY ANXIOUS WITH TRANSFERS. PT REPORTED LEFT LEG DICOMFORT/HEAVINESS T/O THE DAY, DECLINED TYLENOL FOR PAIN. THE PT WAS GIVEN A MUSCLE RELAXANT TODAY AND REPORTED THAT IT HAD LITTLE NOTICABLE EFFECT AND THAT HER LEG ACTUALLY FELT HEAVY SINCE TAKEING IT. THE PT CONTINUES TO NEED AIRVO 40/40% O2 SATS DESAT TO THE MID 80'S WITH ANY EXCERTION OTHERWISE CONSISTANTLY ABOVE 90%. PT SON WAS IN TO SEE HER TODAY AND SPOKE WITH THE TICKET WRITER AND [facility]. CALL LIGHT IN REACH, WILL CONTINUE TO MONITOR AND ASSESS FOR CHANGES
[2021-07-17 05:25] LABS: Hematocrit 42.1 % (33.0-51.0); Hemoglobin 13.9 g/dL (11.5-16.0); Mean Corpuscular HGB 31.8 pg (26.0-34.0); Mean Corpuscular Volume 96 fL (80-100); Platelet Count 184 K/mm3 (150-400); RDW Coefficient Variation 13.4 % (11.7-14.2); RDW Standard Deviation 47.9 fL (35.1-46.3); Red Blood Cell Count 4.37 M/mm3 (3.80-5.20); White Blood Cell Count 8.57 K/mm3 (4.00-11.30)
[2021-07-17 05:56] LABS: Alanine Aminotransfer (ALT/SGP 43 U/L (12-78); Albumin, Blood 2.9 g/dL (3.4-5.0); Alk Phos 41 U/L (50-136); Anion Gap 5 mmol/L (6-16); Aspartate Aminotrans (AST/SGOT 43 U/L (12-37); Bilirubin, Total 0.4 mg/dL (0.1-1.0); Blood Urea Nitrogen 22 mg/dL (8-24); Bun/Creatinine Ratio 30.9 (12.0-20.0); CO2, Blood 32 mmol/L (21-32); Calcium, Blood 8.7 mg/dL (8.5-10.1); Chloride, Blood 101 mmol/L (98-108); Creatinine, Blood 0.71 mg/dL (0.40-1.00); Globulin, Blood 2.9 g/dL (2.2-4.0); Glomerular Filtration Rate >60 (60-); Glucose, Blood 133 mg/dL (70-99); Magnesium, Blood 2.6 mg/dL (1.6-2.4); Potassium, Blood 4.2 mmol/L (3.5-5.5); Sodium, Blood 138 mmol/L (136-145); Total Protein, Blood 5.8 g/dL (6.4-8.2)
[2021-07-17 05:58] LABS: BASOPHILS PERCENT MAN 0 % (0-2); EOSINOPHILS PERCENT MAN 0 % (0-6); LYMPHOCYTES ABSOLUTE MAN 0.59 K/mm3 (0.84-5.20); LYMPHOCYTES PERCENT MAN 7 % (21-46); MONOCYTES ABSOLUTE MAN 0.68 K/mm3 (0.16-1.47); MONOCYTES PERCENT MAN 8 % (4-13); MYELOCYTE ABSOLUTE MAN 0.08 K/mm3 (0.00-0.00); MYELOCYTE PERCENT MAN 1 % (0-0); NEUTROPHILS ABSOLUTE MAN 7.19 K/mm3 (1.96-9.15); SEG NEUTROPHILS PERCENT MAN 84 % (41-73); TOTAL CELLS COUNTED 100
--- NOTE | 2021-07-17 07:30 | NUR ---
SHIFT SUMMARY PT IRRITABLE, YELLS AT STAFF FOR PROVIDING CARE. THIS AM PT STATES "YOU BETTER WATCH OUT! YOU'RE ABOUT TO START A FIGHT!" THIS NURSE & KENNEL OPERATOR WERE GETTING AM VITALS & ASSISTING TO BSC. PT STARTED SHAKING BODY, FLAILING ARMS AROUND & STATED "WATCH OUT I CAN'T CONTROL MY BODY." SHAKING & FLAILING BODY MOVEMENTS STOPPED ONCE PT CARE WAS DONE. VSS. TELE NSR @80. DENIES PAIN, N/V OR DYSPNEA. DENIES ANY PROBLEM c HER BREATHING. SPO2 DROPS c ACTIVITY BECAUSE PT BREATHS VIA MOUTH, ENCOURAGED PT TO BREATH IN THROUGH AIRVO. SETTING 40L @43% FIO2, SPO2 >90%. LS DIM & TIGHT. DRY NONPRODUCTIVE COUGH. REPORTS "HEAVINESS" TO L LEG BUT DENIES PAIN. CALL LIGHT IN REACH.
[2021-07-17 12:14] LABS: Base Excess Venous 9.1 mmol/L; Bicarbonate Venous 31.5 mmol/L (24.0-30.0); PCO2 Venous 46.9 mmHg (38-42); pH Blood Venous 7.46 (7.34-7.37)
--- NOTE | 2021-07-17 18:27 | NUR ---
PT IS A/OX3, IRRIATABLE WITH CARE AT TIMES OTHERWISE COOPERATIVE. THE PT IS ON AIRVO 40/35% AT THIS TIME MAINTAING SAT'S > 90% AT REST. THE PT DOES DESAT INTO THE MID 80'S WITH EXCERTION. THE PT WAS GIVEN ATIVAN 1 MG IV X2 TODAY FOR CWAW 9 PT SEEMED TO BE MORE CALM AFTER ADMINISTERING THE ATIVAN. THE PT CONTINUED TO REPORT LEFT LEG PRESSURE TODAY. THIS AM THE PT REPORTED FEELING DIZZY AT REST THIS SEEMED TO IMPROVE THIS AFTERNOON. THE PTS SON CHIP WAS AT THE BEDSIDE THIS AFTERNOON. CALL LIGHT IN REACH. WILL CONTINUE TO MONITOR AND ASSESS FOR CHANGES
--- NOTE | 2021-07-17 18:35 | NUR ---
AM ASSESSMENT I WAS PRESENT DURING THE STUDENT RN'S AM ASSESSMENT AND AGREE WITH HER DOCUMENTATION T/O THE DAY
--- NOTE | 2021-07-18 05:10 | NUR ---
SHIFT SUMMARY AOX2-PLACE, SELF, FAMILY. UNAWARE DATE, SITUATION & HAS DIFFICULTY FOLLOWING DIRECTIONS. AGITATED, ANXIOUS, IRRITABLE c CARE. ARGUMENTATIVE. NEEDS FREQUENT REMINDING SHE IS IN HOSPITAL, TO LEAVE LINES/CORDS ALONE. HAS NONSENSICAL RESPONSES c MUMMBLED/GARBLED SPEECH AT TIMES, DIFFICULT TO UNDERSTAND. CIWA 9 & 13, MEDICATED 2X c 1MG ATIVAN & PT ABLE TO RELAX COMFORTABLY. BUE TREMULOUS. REPORTS "HEAVINESS" TO L LEG. VSS. TELE NSR HR 71. SPO2 >90% ON 40L @35% FIO2 AIRVO. GET DYSPNIC c ACTIVITY. VERY WEAK & DECONDITIONED. CALL LIGHT IN REACH & BED ALARM IN PLACE.
[2021-07-18 06:06] LABS: BASOPHILS ABSOLUTE AUTO 0.01 K/mm3 (0.00-0.23); BASOPHILS PERCENT AUTO 0 % (0-2); EOSINOPHILS PERCENT AUTO 0 % (0-6); Hematocrit 45.6 % (33.0-51.0); Hemoglobin 15.3 g/dL (11.5-16.0); IMMATURE GRAN ABSOLUTE AUTO 0.06 K/mm3 (0.00-0.10); IMMATURE GRAN PERCENT AUTO 1 % (0-1); LYMPHOCYTES ABSOLUTE AUTO 0.32 K/mm3 (0.84-5.20); LYMPHOCYTES PERCENT AUTO 4 % (21-46); MONOCYTES ABSOLUTE AUTO 1.04 K/mm3 (0.16-1.47); MONOCYTES PERCENT AUTO 11 % (4-13); Mean Corpuscular HGB 32.3 pg (26.0-34.0); Mean Corpuscular HGB Conc 33.6 g/dL (31.5-36.5); Mean Corpuscular Volume 96 fL (80-100); Mean Platelet Volume 9.8 fL (9.1-12.4); NEUTROPHILS ABSOLUTE AUTO 7.72 K/mm3 (1.96-9.15); NEUTROPHILS PERCENT AUTO 84 % (41-73); Platelet Count 203 K/mm3 (150-400); RDW Coefficient Variation 13.3 % (11.7-14.2); RDW Standard Deviation 47.8 fL (35.1-46.3); Red Blood Cell Count 4.74 M/mm3 (3.80-5.20); White Blood Cell Count 9.15 K/mm3 (4.00-11.30)
[2021-07-18 06:29] LABS: Alanine Aminotransfer (ALT/SGP 55 U/L (12-78); Albumin, Blood 3.3 g/dL (3.4-5.0); Albumin/Globulin Ratio 1.1 (0.8-1.8); Alk Phos 46 U/L (50-136); Anion Gap 6 mmol/L (6-16); Aspartate Aminotrans (AST/SGOT 43 U/L (12-37); Bilirubin, Total 0.7 mg/dL (0.1-1.0); Blood Urea Nitrogen 21 mg/dL (8-24); Bun/Creatinine Ratio 32.3 (12.0-20.0); C-REACTIVE PROTEIN, EXT RANGE 0.325 mg/dL (0.000-0.300); CO2, Blood 32 mmol/L (21-32); Calcium, Blood 9.1 mg/dL (8.5-10.1); Chloride, Blood 98 mmol/L (98-108); Creatinine, Blood 0.65 mg/dL (0.40-1.00); Glomerular Filtration Rate >60 (60-); Glucose, Blood 110 mg/dL (70-99); Potassium, Blood 3.9 mmol/L (3.5-5.5); Sodium, Blood 136 mmol/L (136-145); Total Protein, Blood 6.3 g/dL (6.4-8.2)
--- NOTE | 2021-07-18 16:28 | NUR ---
PT IS A/OX3, COOPERATIVE THIS AM. PT WAS GIVEN ATIVAN 2 MG PO FOR CWAW SCORE OF 10 THIS AM. PT WAS AGITATED AND ANXIOUS. PT WAS TAKEN OFF AIRVO AND TRIED ON OXYMIZER @ 4L/MIN THE PTS O2 SAT'S WERE > 90% HIGH 97%, UNTIL THE PT SAT UP ON THE SIDE OF THE BED AND BECAME AGITATED HER SAT'S MOMENTARILY DROPPED TO 84%. THE RT WAS AT THE BEDSIDE RE APPLIED THE AIRVO. PT NOW RESTING CALMLY WILL REAPPLY THE OXYMIZER. PT SON WAS AT THE BEDSIDE THIS AFTERNOON, THE PT IS MUCH MORE CALM WHEN HE IS VISITING. THE PT IS A 2 PERSON MAX ASSIST UO TO THE BSC AND CHAIR, OT WAS IN TO WORK WITH THE PT TODAY. CALL LIGHT IN REACH. WILL CONTINUE TO MONITOR AND ASSESS FOR CHANGES
--- NOTE | 2021-07-19 04:33 | NUR ---
SHIFT SUMMARY: PATIENT STARTED THE SHIFT ON 6L OXYMIZER. ABLE TO WEAN DOWN TO 3L VIA NC. DYSPNEA WITH EXERTION AND DESATS WHEN CANNUAL REMOVED INTO LOW 80S PATIENT LABILE T/O SHIFT, BOSTERIOUS AND AGRESSIVE WITH STAFF, STRUCK STAFF WITH CLOSED FISTS AND LEGS. DIFICULT TO REDIRECT AT TIMES SHE GETS FIXATED. 2MAX ASSIST TO BSC D/T WEAKNESS. MUMBLED SPEECH MAKES IT CHALLENGING TO UNDERSTAND. MENTATION WAXES AND WANES. STARTED THE SHIFT PLEASANT AND ORIENTED X3, SOME PERIODS OF THE NIGHT OREINTED TO SELF ONLY. ATIVAN GIVEN X1 FOR AGITATION. TELE = NSR/ST 90-110S. PATIENT STATES SHE WOULD LIKE TO GO HOME TODAY AND WILL COMPLY WITH WEARING OXYGEN.
[2021-07-19 05:34] LABS: BASOPHILS ABSOLUTE AUTO 0.01 K/mm3 (0.00-0.23); BASOPHILS PERCENT AUTO 0 % (0-2); EOSINOPHILS PERCENT AUTO 0 % (0-6); Hematocrit 42.6 % (33.0-51.0); Hemoglobin 13.9 g/dL (11.5-16.0); IMMATURE GRAN ABSOLUTE AUTO 0.08 K/mm3 (0.00-0.10); IMMATURE GRAN PERCENT AUTO 1 % (0-1); LYMPHOCYTES ABSOLUTE AUTO 0.39 K/mm3 (0.84-5.20); LYMPHOCYTES PERCENT AUTO 5 % (21-46); MONOCYTES ABSOLUTE AUTO 0.89 K/mm3 (0.16-1.47); MONOCYTES PERCENT AUTO 12 % (4-13); Mean Corpuscular HGB 31.7 pg (26.0-34.0); Mean Corpuscular HGB Conc 32.6 g/dL (31.5-36.5); Mean Corpuscular Volume 97 fL (80-100); NEUTROPHILS ABSOLUTE AUTO 5.79 K/mm3 (1.96-9.15); NEUTROPHILS PERCENT AUTO 81 % (41-73); Platelet Count 189 K/mm3 (150-400); RDW Coefficient Variation 13.2 % (11.7-14.2); RDW Standard Deviation 46.5 fL (35.1-46.3); Red Blood Cell Count 4.38 M/mm3 (3.80-5.20); White Blood Cell Count 7.16 K/mm3 (4.00-11.30)
[2021-07-19 06:00] LABS: Alanine Aminotransfer (ALT/SGP 52 U/L (12-78); Albumin, Blood 2.9 g/dL (3.4-5.0); Alk Phos 42 U/L (50-136); Anion Gap 4 mmol/L (6-16); Aspartate Aminotrans (AST/SGOT 41 U/L (12-37); Bilirubin, Total 0.5 mg/dL (0.1-1.0); Blood Urea Nitrogen 18 mg/dL (8-24); Bun/Creatinine Ratio 26.5 (12.0-20.0); CO2, Blood 36 mmol/L (21-32); Chloride, Blood 101 mmol/L (98-108); Creatinine, Blood 0.68 mg/dL (0.40-1.00); Globulin, Blood 2.8 g/dL (2.2-4.0); Glomerular Filtration Rate >60 (60-); Glucose, Blood 102 mg/dL (70-99); Magnesium, Blood 2.4 mg/dL (1.6-2.4); Potassium, Blood 4.2 mmol/L (3.5-5.5); Sodium, Blood 141 mmol/L (136-145); Total Protein, Blood 5.7 g/dL (6.4-8.2)
--- NOTE | 2021-07-19 17:55 | NUR ---
PT IS A/OX3, JAM, AT TIMES CAN BE IRRIATABLE AND UNCOOPERATIVE. THE PT IS VERY TREMORS AND THERFORE HAS BEEN NEEDING ASSISTANCE WITH MEALS. PT NEEDS ASSISTANCE WITH TRANSFERS. THE PT GETS VERY IRRITATED WITH CARE. THE PT WORKED WITH THE OCCUPATIONAL AND PHYSICAL THERAPIST TODAY AND WAS UP IN THE CHAIR FOR BREAKFAST. THE PT IS ON 4L/MIN O2 VIA NC AT REST AND MOMENTARILY DESAT'S WITH EXCERTION. THIS AFTERNOON THE PT WAS VERY DROWSY AND LATER IN THE AFTERNOON THE PT WAS MORE AWAKE IN A GOOD MOOD AND WAS PLAYING CARDS WITH HER SON. PLAN FOR THE PT TO BE DISCHARGED TOMORROW. CALL LIGHT IN REACH. BED ALARM ON. PT WAS GIVEN ATIVAN 1 MG AND BACLOFEN X1 THIS AM
--- NOTE | 2021-07-20 06:05 | NUR ---
SHIFT SUMMARY: PATIENT HAD A MUCH BETTER NIGHT. NO AGRESSION/AGITATION. CAN BE IRRITABLE WHEN ASKED TO REPEAT SELS. HAD LUCID CONVERSTATION WITH PATIENT. ONCOING PAING TO RIGHT LEG TREATED PER EMAR. ON 3L NC SAT >94%. EXP WHEEZE T/O. SOME NASSAR RECOVERS QUICKLY. SLEPT WELL. PATIENT IS EAGER TO DC TODAY.
--- NOTE | 2021-07-20 16:00 | NUR ---
DISCHARGE NOTE PT WAS AGGITATED TODAY, THREW HER BREAKFAST CHOCOLATE MILK AT THE WALL, SHOUTING, C/O PAIN TO LEFT LEG AND GENERAL PAIN. CONFUSED STATEMENTS. ORIENTATED TO SELF. COMLIANT WITH OXYGEN NASAL CANNULA. SHE CALMED DOWN AFTER ORAL MEDICATIONS THIS AM. SHE HAD DIFFICULTY WITH TRANSFERS TO THE BEDSIDE COMMODE, REQUIRING 2 PERSON ASSIST AND REMINDERS OF HOW TO DO THE TRANSFER. SEEN BY OT AND PT. PT RECOMMENDED LONGTERM FACILITY. WHEN HER SON WAS HERE PT WAS CALM, PLAYING CARDS WITH HIM. THEY BOTH DECLINED THE S.N.F. THE SON SAID THAT HE WAS PLANNING TO STAY AT HER HOUSE LOAN INTERVIEWER AND CARE FOR HER. NICANOR, ANDROID SOFTWARE ENGINEER, SET UP HOME CARE NURSE, PT, OT, HOME OXYGEN AND WHEELCHAIR. PT COUGHING FREQUENTLY DRY WEAK COUGH, SOB ON EXERTION. SEEN BY RT TODAY FOR TREATMENT. DISCHARGE TO HOME AT 1600HRS. PT AND HER SON GIVEN WRITTEN AND VERBAL DISCHARGE INSTRUCTIONS. SON SAID HE ALREADY HAS FOLLOW UP APPOINTMENT SET UP WITH HER PCP. INDWELLING IV CATHETER REMOVED INTACT PRIOR TO DISCHARGE. SON WHEELED PT OUT WITH PORTABLE O2 IN THEIR WHEELCHAIR AT 1600HRS.
== END 2021-07-20 15:55 | disposition home health service (06) | DRG 177 ==
LOC: ER 09:19 → ERHOLD 11:02 → MEDS 11:02
PROVIDERS: Emergency Medicine; Family Medicine; ADMIT Family Medicine
PROC: HZ2ZZZZ Detoxification Services for Substance Abuse Treatment (ICD-10-PCS; principal; 2021-07-13)
PROC: 8E0ZXY6 Isolation (ICD-10-PCS; 2021-07-13)
PROC: 3E0333Z Introduction of Anti-inflammatory into Peripheral Vein, Percutaneous Approach (ICD-10-PCS; 2021-07-13)
PROC: 5A0955A Assistance with Respiratory Ventilation, Greater than 96 Consecutive Hours, High Flow/Velocity Cannula (ICD-10-PCS; 2021-07-13)
DX: U07.1 COVID-19 (principal); J96.21 Acute and chronic respiratory failure with hypoxia; J44.1 Chronic obstructive pulmonary disease with (acute) exacerbation; Z66 Do not resuscitate; D69.6 Thrombocytopenia, unspecified; R42 Dizziness and giddiness; Z28.310 Unvaccinated for COVID-19; R41.0 Disorientation, unspecified; R00.0 Tachycardia, unspecified; M79.605 Pain in left leg; F60.9 Personality disorder, unspecified; G40.909 Epilepsy, unspecified, not intractable, without status epilepticus; Z91.19 Patient's noncompliance with other medical treatment and regimen; M43.16 Spondylolisthesis, lumbar region; I10 Essential (primary) hypertension; E55.9 Vitamin D deficiency, unspecified; G25.81 Restless legs syndrome; I73.9 Peripheral vascular disease, unspecified; F10.20 Alcohol dependence, uncomplicated; E78.5 Hyperlipidemia, unspecified; Z79.82 Long term (current) use of aspirin; Z79.899 Other long term (current) drug therapy; Z87.820 Personal history of traumatic brain injury; Z98.51 Tubal ligation status; Z87.891 Personal history of nicotine dependence
CPT/HCPCS: 0241U; 36415; 70450; 71045; 71260; 72100; 73502; 73552; 80053; 82140; 82803; 83605; 83735; 83880; 84484; 85025; 86140; 93005; 93010; 93971; 94640; 94644; 94664; 94760; 94761; 94762; 96374; 97110; 97116; 97162; 97166; 97530; 97535; 99285-25; A9270; J1100; J1650; J2060; J2543; J2930; J3411; Q9967

== ENCOUNTER 2022-03-16 23:06 | Inpatient (IN) | payer MEDICARE, OTHER ==
[~2022-03-16] VITALS: Ht 165.1 cm; Wt 66.6 kg
[~2022-03-16 23:06] MED LIST changes: +DILT180 PO
[2022-03-16 23:37] LABS: Base Excess Venous 3.6 mmol/L; Bicarbonate Venous 25.7 mmol/L (24.0-30.0); PCO2 Venous 73.6 mmHg (38-42); pH Blood Venous 7.23 (7.34-7.37)
[2022-03-16 23:44] LABS: Hemoglobin 13.5 g/dL (11.5-16.0); Mean Corpuscular HGB 31.3 pg (26.0-34.0); Mean Corpuscular HGB Conc 32.1 g/dL (31.5-36.5); Mean Corpuscular Volume 97 fL (80-100); Mean Platelet Volume 11.1 fL (9.1-12.4); Platelet Count 148 K/mm3 (150-400); RDW Coefficient Variation 11.9 % (11.7-14.2); RDW Standard Deviation 43.3 fL (35.1-46.3); Red Blood Cell Count 4.31 M/mm3 (3.80-5.20); White Blood Cell Count 12.98 K/mm3 (4.00-11.30)
[2022-03-16 23:57] LABS: Alanine Aminotransfer (ALT/SGP 31 U/L (12-78); Albumin, Blood 3.2 g/dL (3.4-5.0); Albumin/Globulin Ratio 0.9 (0.8-1.8); Alk Phos 68 U/L (50-136); Anion Gap 5 mmol/L (6-16); Aspartate Aminotrans (AST/SGOT 40 U/L (12-37); Bilirubin, Total 0.3 mg/dL (0.1-1.0); Blood Urea Nitrogen 19 mg/dL (8-24); Bun/Creatinine Ratio 20.3 (12.0-20.0); CO2, Blood 36 mmol/L (21-32); Calcium, Blood 9.4 mg/dL (8.5-10.1); Chloride, Blood 96 mmol/L (98-108); Creatinine, Blood 0.94 mg/dL (0.40-1.00); Ethanol (Alcohol), Blood, Med <3 mg/dL; Globulin, Blood 3.7 g/dL (2.2-4.0); Glomerular Filtration Rate 66 (60-); Glucose, Blood 150 mg/dL (70-99); Magnesium, Blood 2.5 mg/dL (1.6-2.4); Potassium, Blood 3.7 mmol/L (3.5-5.5); Sodium, Blood 137 mmol/L (136-145); Total Protein, Blood 6.9 g/dL (6.4-8.2)
[2022-03-17 00:12] LABS: BAND PERCENT MAN 17 % (0-8); BASOPHILS PERCENT MAN 0 % (0-2); EOSINOPHILS PERCENT MAN 0 % (0-6); LYMPHOCYTES % ATYPICAL MANUAL 1 % (0-0); LYMPHOCYTES ABSOLUTE MAN 4.67 K/mm3 (0.84-5.20); LYMPHOCYTES PERCENT MAN 35 % (21-46); METAMYELOCYTE ABSOLUTE MAN 0.12 K/mm3 (0.00-0.00); METAMYELOCYTE PERCENT MAN 1 % (0-0); MONOCYTES ABSOLUTE MAN 3.11 K/mm3 (0.16-1.47); MONOCYTES PERCENT MAN 24 % (4-13); NEUTROPHILS ABSOLUTE MAN 5.06 K/mm3 (1.96-9.15); SEG NEUTROPHILS PERCENT MAN 22 % (41-73); TOTAL CELLS COUNTED 100
[2022-03-17 00:36] LABS: Source, Urine Fem Cath
[2022-03-17 00:52] LABS: Bilirubin, Urine Neg (Neg); Blood, Urine 1+ (Neg); Glucose Qualitative, Urine Neg (Neg); Ketones, Urine Neg (Neg); Leukocyte Esterase, Urine 3+ (Neg); Nitrite, Urine Neg (Neg); Protein, Urine 2+ (Neg); Specific Gravity, Urine 1.015 (1.003-1.022); Urobilinogen, Urine NORM (Normal)
[2022-03-17 00:53] LABS: Appearance, Urine Hazy (Clear); Color, Urine Yellow (P-Yellow)
[2022-03-17 00:54] LABS: Amorphous Light (0-Heavy); Bacteria Many /hpf; Hyaline Casts 0-2 /lpf (0-2); Red Blood Cells, Urine 0-2 /hpf (0-2); Squamous Epithelial Cells Many /hpf (Few); White Blood Cells, Urine 50-100 /hpf (0-5)
[2022-03-17 01:17] LABS: Influenza A, PCR NEGATIVE (NEGATIVE); Influenza B, PCR NEGATIVE (NEGATIVE); Resp Syncytial Virus, PCR NEGATIVE (NEGATIVE); SARS-Cov-2 (COVID-19) PCR, MMC NEGATIVE (NEGATIVE)
[2022-03-17 01:49] LABS: PO2 Arterial 138 mmHg (80-100)
[2022-03-17 01:50] LABS: PCO2 Arterial 72.9 mmHg (35-45); pH Blood Arterial 7.23 (7.35-7.45)
[2022-03-17 04:20] LABS: U Amphetamine Screen Not Detected; U Barbituate Screen Not Detected; U Benzodiazapine Screen Not Detected; U Buprenorphine Screen Not Detected; U Cannabinoids Screen Not Detected; U Cocaine Screen Not Detected; U Methadone Screen Not Detected; U Methamphetamine Screen Not Detected; U Opiates Screen Not Detected; U Oxycodone Screen Not Detected; U Phencyclidine Screen Not Detected; U Propoxyphene Screen Not Detected
[2022-03-17 05:33] LABS: PCO2 Arterial 54.3 mmHg (35-45); PO2 Arterial 67.4 mmHg (80-100); pH Blood Arterial 7.38 (7.35-7.45)
[2022-03-17 06:24] LABS: Hematocrit 38.5 % (33.0-51.0); Hemoglobin 12.9 g/dL (11.5-16.0); Mean Corpuscular HGB 31.5 pg (26.0-34.0); Mean Corpuscular HGB Conc 33.5 g/dL (31.5-36.5); Mean Corpuscular Volume 94 fL (80-100); Platelet Count 126 K/mm3 (150-400); RDW Coefficient Variation 11.9 % (11.7-14.2); RDW Standard Deviation 41.5 fL (35.1-46.3); Red Blood Cell Count 4.09 M/mm3 (3.80-5.20); White Blood Cell Count 5.77 K/mm3 (4.00-11.30)
[2022-03-17 07:00] LABS: Albumin, Blood 2.7 g/dL (3.4-5.0); Albumin/Globulin Ratio 0.8 (0.8-1.8); Bilirubin, Total 0.7 mg/dL (0.1-1.0); Bun/Creatinine Ratio 23.6 (12.0-20.0); Calcium, Blood 8.4 mg/dL (8.5-10.1); Creatinine, Blood 0.68 mg/dL (0.40-1.00); Globulin, Blood 3.4 g/dL (2.2-4.0); Potassium, Blood 3.1 mmol/L (3.5-5.5); Total Protein, Blood 6.1 g/dL (6.4-8.2)
--- NOTE | 2022-03-17 07:05 | NUR ---
END OF SHIFT SUMMARY PT CAME TO UNIT AT 0445 ON VERSED GTT AT 2MG/HR. VENTED AND FOLLOWING COMMANDS BUT HIGHLY AGITATED, TITRATING GTT UNTIL PATIENT NOT TRYING TO PULL OUT ETT. NEURO: VERSED 3.5 MG/HR. PUPILS 1 MM AND SLUGGISH. NOT WITHDRAWING TO NOXIOUS STIMULI. PRIOR TO INCREASE IN SEDATION PT WAS FOLLOWING COMMANDS AND WEAK. CARDIAC: NSR. HR IN 80s. NORMOTENSIVE. SBP 110-120s. PULSES STRONG THROUGH OUT. RESPIRATORY: SIZE 8 ETT TUBE. 24 CM AT THE GUMS. SETTINGS: RR 18 TV 430 FIO2 50% PEEP 8. COPIOUS THICK WHITE/MCLEOD SECRETIONS. BUL BREATH SOUNDS CLEAR, BLL COARSE/DIMINISHED. GI/: HYPERACTIVE BOWEL SOUNDS. MODERATE DISTENTION TO ABDOMEN AND FIRM. OGT TO INTERMITTENT LOW SUCTION. COPIOUS THICK AND CLEAR, MAROON TINGED OUTPUT. MURPHY IN PLACE. PUTTING OUT ADEQUATE AMOUNTS OF ALICIA URINE. INTEGUMENTARY: REDNESS AND SMALL WOUND TO COCCYX. DIFFUSE BRUISING, MOST NOTABLE TO LEFT YEUNG AND LEFT HAND.
[2022-03-17 07:39] LABS: BAND PERCENT MAN 13 % (0-8); BASOPHILS PERCENT MAN 0 % (0-2); EOSINOPHILS ABSOLUTE MAN 0.11 K/mm3 (0.00-0.68); EOSINOPHILS PERCENT MAN 2 % (0-6); LYMPHOCYTES ABSOLUTE MAN 0.34 K/mm3 (0.84-5.20); LYMPHOCYTES PERCENT MAN 6 % (21-46); MONOCYTES ABSOLUTE MAN 0.63 K/mm3 (0.16-1.47); MONOCYTES PERCENT MAN 11 % (4-13); NEUTROPHILS ABSOLUTE MAN 4.67 K/mm3 (1.96-9.15); SEG NEUTROPHILS PERCENT MAN 68 % (41-73); TOTAL CELLS COUNTED 100
--- NOTE | 2022-03-17 08:00 | NUR ---
PT INTUBATED AND MECHANICALLY VENTILATED. PT SITTING UP IN BED, PULLING ON RESTRAINTS, AND APPEARS OVERALL RESTLESS AND AGITATED-VERSED DRIP TITRATED UP TO 5 MG/HR AND MED WITH ATIVAN 2 MG IVP X 1-SEE EMAR. ECG SHOWS SR WITH RATE 80'S. MAP TRENDING 65-70. 1+ GENERALIZED EDEMA NOTED. LUNGS WITH CRACKLES TO RIGHT MID AND LOWER LOBES. ETT TO VENT: AC 18, TV 430, PEEP 8, FIO2 45% SATS>90%. SUCTION PRODUCTIVE OF COPIOUS, THICK, WHITE SECRETIONS-WILL SEND SPUTUM SPECIMEN TODAY. OGT TO LIS WITH LARGE AMOUNT OF THICK, PINK SECRETIONS-NO COFFEE GROUND OR BLOOD NOTED. MURPHY TO BSD WITH SMALL AMOUNT OF CLEAR, YELLOW URINE OUTPUT. SKIN IS PALE AND FRAIL WITH SCATTERED BRUISES THROUGH OUT. WOUND NOTED TO GLUTEAL FOLD-SEE PHOTOS-MEPILEX PLACED. DR. CINTRON GIVEN FULL UPDATE. DR. CINTRON CONTACTED PT SON AND GAVE HIM AN UPDATE WELL.
--- NOTE | 2022-03-17 10:30 | NUR ---
DR. SWAN BY BRIEFLY TO SEE PT. FULL UPDATE GIVEN. PRECEDEX DRIP STARTED @ 0.7 MCG/KG/MIN AND VERSED DRIP DISCONTINUED PER DR. SWAN. PROPOFOL DRIP TO BE INITIATED IF PT STILL AGITATED AND NON-COMPLIANT WITH VENTILATOR. ETT SUCTION PRODUCTIVE OF LARGE AMOUNT OF THICK, RED SPUTUM-SPECIMEN SENT.
--- NOTE | 2022-03-17 11:30 | NUR ---
SBP 70'S MAP 60-DR. CINTRON UPDATED. NS 500 CC BOLUS INITIATED. WILL RE-EVALUATE AFTER BOLUS GIVEN.
[2022-03-17 12:18] LABS: Albumin, Blood 2.3 g/dL (3.4-5.0); Anion Gap 5 mmol/L (6-16); Blood Urea Nitrogen 16 mg/dL (8-24); Bun/Creatinine Ratio 27.3 (12.0-20.0); CO2, Blood 29 mmol/L (21-32); Calcium, Blood 7.7 mg/dL (8.5-10.1); Chloride, Blood 105 mmol/L (98-108); Creatinine, Blood 0.59 mg/dL (0.40-1.00); Glomerular Filtration Rate 98 (60-); Glucose, Blood 136 mg/dL (70-99); Magnesium, Blood 2.3 mg/dL (1.6-2.4); Sodium, Blood 139 mmol/L (136-145)
--- NOTE | 2022-03-17 12:43 | NUR ---
BOLUS COMPLETE. MAP 64. SBP 80'S-DR. CINTRON NOTIFIED.
--- NOTE | 2022-03-17 14:00 | NUR ---
DR. SWAN MADE AWARE THAT SBP 70-80'S DESPITE FLUID BOLUS AND THAT URINE OUTPUT 200 CC SO FAR THIS SHIFT. PICC LINE PLACEMENT REQUESTED. PT SON AKIL GAVE VERBAL CONSENT FOR PICC PLACEMENT. PT BOOSTED IN BED AND MAYNOR ERWIN AT BEDSIDE PLACING PICC.
--- NOTE | 2022-03-17 15:30 | NUR ---
PT SITTING UP IN THE BED, PULLING ON RESTRAINTS, COUGHING AND VENT ALARMING. PRECEDEX DRIP @ 0.7 MCG/KG/MIN. DR. CINTRON @ BEDSIDE-PROPOFOL DRIP INITIATED @ 25 MCG/KG/MIN AND PRECEDEX TITRATED DOWN TO 0.4 MCG/KG/MIN. MAP TRENDING >65 ON LEVOPHED @ 2 MCG/MIN. LUNGS COARSE TO UPPER LOBES AND ETT SUCTION PRODUCTIVE OF A LARGE AMOUNT OF THICK, OLD BLOODY SECRETIONS. SPUTUM SPECIMEN WITH GRAM+ COCCI-DR. SWAN IS AWARE. 1/2 NS @ 150 CC/HR INITIATED AND NA+ PHOS 30 MMOL REPLETION INFUSING.JEFFREY WITH 300 CC DARK, YELLOW URINE OUTPUT SO FAR THIS SHIFT.
--- NOTE | 2022-03-17 18:21 | NUR ---
PT RESTING QUIETLY ON VENT WITH PROPOFOL @ 25 MCG/KG/MIN AND PRECEDEX @ 0.4 MCG/KG/MIN. MAP >65 WITH LEVOPHED @ 2 MCG/MIN. URINE OUTPUT IMPROVED-600 CC OUT THIS SHIFT. PT SISTER AT BEDSIDE-UPDATE GIVEN.
[2022-03-18 03:05] LABS: Hematocrit 33.3 % (33.0-51.0); Hemoglobin 11.5 g/dL (11.5-16.0); Mean Corpuscular HGB 31.5 pg (26.0-34.0); Mean Corpuscular HGB Conc 34.5 g/dL (31.5-36.5); Mean Corpuscular Volume 91 fL (80-100); Mean Platelet Volume 10.5 fL (9.1-12.4); Platelet Count 159 K/mm3 (150-400); RDW Standard Deviation 40.6 fL (35.1-46.3); Red Blood Cell Count 3.65 M/mm3 (3.80-5.20); White Blood Cell Count 7.07 K/mm3 (4.00-11.30)
[2022-03-18 03:27] LABS: Albumin, Blood 2.3 g/dL (3.4-5.0); Albumin/Globulin Ratio 0.7 (0.8-1.8); Bilirubin, Total 0.2 mg/dL (0.1-1.0); Bun/Creatinine Ratio 26.9 (12.0-20.0); Calcium, Blood 8.1 mg/dL (8.5-10.1); Creatinine, Blood 0.6 mg/dL (0.40-1.00); Globulin, Blood 3.1 g/dL (2.2-4.0); Magnesium, Blood 2.4 mg/dL (1.6-2.4); Phosphorus, Blood 2.1 mg/dL (2.5-4.9); Total Protein, Blood 5.4 g/dL (6.4-8.2)
[2022-03-18 03:30] LABS: BAND PERCENT MAN 13 % (0-8); BASOPHILS PERCENT MAN 0 % (0-2); EOSINOPHILS PERCENT MAN 0 % (0-6); LYMPHOCYTES ABSOLUTE MAN 0.35 K/mm3 (0.84-5.20); LYMPHOCYTES PERCENT MAN 5 % (21-46); MONOCYTES PERCENT MAN 10 % (4-13); SEG NEUTROPHILS PERCENT MAN 72 % (41-73); TOTAL CELLS COUNTED 100
[2022-03-18 03:44] LABS: PCO2 Arterial 44.2 mmHg (35-45); PO2 Arterial 59.9 mmHg (80-100); pH Blood Arterial 7.46 (7.35-7.45)
--- NOTE | 2022-03-18 06:27 | NUR ---
END OF SHIFT SUMMARY DRIPS: LEVO 2 MCG/MIN. PROPOFOL 25 MCG/KG/MIN. PRECEDEX 0.4 MCG/KG/HR LINES: ELLYN PICC. YAAKOV PG NEURO: PT SEDATED. INTERMITTENT WITHDRAWAL FROM BUE AND BLE TO NOXIOUS STIMULI AND WILL REACH FOR ETT WHEN SUCTIONING. POSITIVE COUGH AND GAG. PUPILS 4 MM, BRISK AND PERRL. CARDIAC: NSR. HR IN 80s. SBP 90s-110s. MAPS >65. PULSES STRONG THROUGH OUT. RESPIRATORY: SIZE 8 ETT TUBE. 24 CM AT THE GUMS. SETTINGS: RR 18 TV 430 FIO2 45% PEEP 8. SMALL AMOUNTS OF THICK CLEAR/PINK SECRETIONS. BUL BREATH SOUNDS CLEAR, BLL COARSE/DIMINISHED. GI/: NORMOACTIVE BOWEL SOUNDS. MODERATE DISTENTION TO ABDOMEN AND FIRM. OGT TO INTERMITTENT LOW SUCTION. 75 ML OUTPUT OF THICK, PINK TINGED OUTPUT. MURPHY IN PLACE. PUTTING OUT ADEQUATE AMOUNTS OF ALICIA URINE. INTEGUMENTARY: REDNESS AND SMALL WOUND TO COCCYX. MEPILEX IN PLACE. DIFFUSE BRUISING, MOST NOTABLE TO LEFT YEUNG AND LEFT HAND.
--- NOTE | 2022-03-18 09:10 | NUR ---
ASSUMED CARE: REPORT RECEIVED FROM DARIANA Alcantar RN. ASSUMED CARE OF THIS PT AT APPROX 0700. ON ASSESSMENT, THE PT IS SEDATED W/ PROPOFOL & PRECEDEX, INTUBATED. SHE IS RESTING QUIETLY BUT BECOMES AGITATED/ ANXIOUS W/ INCREASED STIMULUS, PULLING AT RESTRAINTS & ATTEMPTING TO REACH FOR ETT, SHE IS ALSO TREMULOUS DURING THIS TIME. PRN MEDS PER EMAR. LS COARSE, DIM IN BASES. VENT SETTINGS: AC/VC 18/430/8/45% W/ O2 SATS > 92% ON AVG. MONITOR SHOWS SR W/ HR 70-90s, HYPOTENSIVE W/ LEVOPHED INFUSING AT 2 MCG/MIN. OGT IN PLACE TO LIS, CLAMPED FOR APPROX 1 HR AFTER PROJECT PORTFOLIO ANALYST THIS AM. MURPHY PATENT/ DRAINING ALICIA COLORED URINE. SKIN CONDITION OVERALL FRAGILE, MULTIPLE AREAS OF ECCHYMOSIS SCATTERED T/O SKIN SURFACE. WILL CONTINUE TO MONITOR & UPDATE NEEDED.
--- NOTE | 2022-03-18 15:00 | NUR ---
ASSUMED CARE PT. SEDATED AND INTUBATED AT THIS TIME, ASSUMED CARE FROM LUIS MCGUIRE. PT. SON REMAINS AT BEDSIDE. PT SEDATED WITH PROPOFOL AND PRECEDEX GTTS SEE FLOW SHEET. PT. GRIMACES AND COUGHS ON VENT WITH STIMULATION. LS COARSE WITH PINK THICK SECREATIONS. OG TUBE TO LIS. AFEBRILE. MURPHY IN PLACE DRAINING TO GRAVITY. PT. DOES REMAIN ON LEVOPHED GTT TO KEEP MAP > 65. PICC LINE IN PLACE ALONG WITH PG FOR ACCESS. SLY AT THIS TIME.
[2022-03-19 04:53] LABS: BASOPHILS ABSOLUTE AUTO 0.01 K/mm3 (0.00-0.23); BASOPHILS PERCENT AUTO 0 % (0-2); EOSINOPHILS PERCENT AUTO 0 % (0-6); Hematocrit 34.9 % (33.0-51.0); Hemoglobin 12.1 g/dL (11.5-16.0); IMMATURE GRAN ABSOLUTE AUTO 0.08 K/mm3 (0.00-0.10); IMMATURE GRAN PERCENT AUTO 1 % (0-1); LYMPHOCYTES ABSOLUTE AUTO 0.54 K/mm3 (0.84-5.20); LYMPHOCYTES PERCENT AUTO 7 % (21-46); MONOCYTES ABSOLUTE AUTO 0.49 K/mm3 (0.16-1.47); MONOCYTES PERCENT AUTO 7 % (4-13); Mean Corpuscular HGB 31.7 pg (26.0-34.0); Mean Corpuscular HGB Conc 34.7 g/dL (31.5-36.5); Mean Corpuscular Volume 91 fL (80-100); Mean Platelet Volume 10.5 fL (9.1-12.4); NEUTROPHILS ABSOLUTE AUTO 6.41 K/mm3 (1.96-9.15); NEUTROPHILS PERCENT AUTO 85 % (41-73); Platelet Count 164 K/mm3 (150-400); RDW Coefficient Variation 12.8 % (11.7-14.2); RDW Standard Deviation 42.3 fL (35.1-46.3); Red Blood Cell Count 3.82 M/mm3 (3.80-5.20); White Blood Cell Count 7.53 K/mm3 (4.00-11.30)
--- NOTE | 2022-03-19 05:19 | NUR ---
SHIFT SUMMERY PT IS INTUBATED VIA ETT. BILATERAL BREATH SOUNDS PRESENT. LEVOPHED ON SB AT THIS TIME. PT MAINTAINING MAP >65 W/OUT SUPPPORT. OG TUBE TO ILWS. SR ON THE CARIDAC MONITOR. PT IS SEDATED W/PRECEDEX AND PROPOFOL. NO ACUTE CHANGES OVERNIGHT.
[2022-03-19 05:20] LABS: Bun/Creatinine Ratio 25.5 (12.0-20.0); Calcium, Blood 8.3 mg/dL (8.5-10.1); Creatinine, Blood 0.67 mg/dL (0.40-1.00); Magnesium, Blood 2.6 mg/dL (1.6-2.4); Phosphorus, Blood 3.4 mg/dL (2.5-4.9)
--- NOTE | 2022-03-19 08:13 | NUR ---
ASSUMED CARE REPORT FROM NORMA MCGUIRE AT 0700. PT INTUBATED AND SEDATED. VENT SETTINGS AC/VC 14/430/5/40%. LUNGS CLEAR. PROPOFOL AND PRECEDEX GTT FOR SEDATION. COUGH/GAG/SWALLOW REFLEX. PT SQUEEZES HANDS BILATERALLY ON COMMAND. RETURNS TO RESTING WHEN UNDISTURBED. SR, RATE 70'S. BP STABLE. ABD ROUND, SOFT, NON TENDER. BT X 4. OGT TO LIS. MURPHY PATENT, DRAINING CLEAR YELLOW URINE TO GRAVITY. PICC TO RUE, POWERGLIDE TO LUE, DRESSINGS C/D/I. WILL CONTINUE TO MONITOR.
--- NOTE | 2022-03-19 14:12 | NUR ---
EXTUBATED PROPOFOL ON STANDBY SINCE APPROX 1000, ON SPONT 12/19/40%. TOLERATING WELL. STRONG COUGH. MODERATE AMOUNT OF THICK MCLEOD SECRETIONS. LUNGS CLEAR. PRECEDEX PLACED ON STANDBY. EXTUBATED AT 1400, RESTRAINTS REMOVED. PLACED ON 4L VIA NC. FAMILY AT BEDSIDE. WILL CONTINUE TO MONITOR.
--- NOTE | 2022-03-19 17:34 | NUR ---
SHIFT SUMMARY PT EXTUBATED THIS SHIFT, SEE PREVIOUS NOTE. CURRENTLY ON 6L VIA OXYMIZER. LUNGS c EXP WHEEZES. PRODUCTIVE COUGH. ABLE TO MANAGE SECRETIONS. SPEAKING IN FULL SENTANCES. OCCASIONALLY COARSE VOICE. PASSED BEDSIDE SWALLOW. TOLERATING WATER AND JELLO WELL, ORDERED FULL LIQUID TRAY. SR, RATE 80-90'S. BP STABLE. MURPHY PATENT, DRAINING 250 ML ALICIA URINE OUT. FAMILY AT BEDSIDE. WILL CONTINUE TO MONITOR UNTIL REPORT TO ONCOMING NURSE.
[2022-03-20 05:17] LABS: Hematocrit 36.3 % (33.0-51.0); Hemoglobin 12.1 g/dL (11.5-16.0); Mean Corpuscular HGB 31.3 pg (26.0-34.0); Mean Corpuscular HGB Conc 33.3 g/dL (31.5-36.5); Mean Corpuscular Volume 94 fL (80-100); Mean Platelet Volume 10.4 fL (9.1-12.4); Platelet Count 181 K/mm3 (150-400); RDW Coefficient Variation 13.2 % (11.7-14.2); RDW Standard Deviation 46.1 fL (35.1-46.3); Red Blood Cell Count 3.86 M/mm3 (3.80-5.20); White Blood Cell Count 12.71 K/mm3 (4.00-11.30)
[2022-03-20 05:42] LABS: Bun/Creatinine Ratio 39.8 (12.0-20.0); Calcium, Blood 8.5 mg/dL (8.5-10.1); Creatinine, Blood 0.73 mg/dL (0.40-1.00); Potassium, Blood 4.4 mmol/L (3.5-5.5)
--- NOTE | 2022-03-20 06:10 | NUR ---
SHIFT SUMMERY PT IS ALERT AND ORIENTED X4. 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 6L OXYGEN VIA OXYIMIZER W/OXYGEN SAT >90% OVERNIGHT. PT HAD NO ACUTE DISTRESS OR EVENTS OVERNIGHT.
--- NOTE | 2022-03-20 08:00 | NUR ---
PT A&OX4. APPEARS ANXIOUS AND IRRITABLE. PT STATES "I CAN'T SLEEP!" PT REPORTS GENERALIZED PAIN, BUT NOT ABLE TO QUANITIFY. ECG SHOWS SR WITH RATE 80-90'S. BP STABLE. 2+ EDEMA NOTED TO LOWER EXTREMITIES L>R. DP/PT PULSES 2+. LUNGS DIMINISHED IN THE BASES. PT ORTHOPNEIC AND TACHYPNEIC. HARSH, NONPRODUCTIVE COUGH. PT VOICE IS HOARSE. RR 22-28. PT TOLERATES SIPS OF WATER WITH MEDS WHOLE WELL. APPETITE POOR. PT REFUSED BREAKFAST TRAY. INCONTINENT OF SMALL AMOUNT OF BROWN, LIQUID STOOL. CHG BATH, ATTENDS PLACED, AND LINEN CHANGE COMPLETED. PT ASSISTED WITH TURNING, BUT APPEARS GENERALLY WEAK. MURPHY TO BSD WITH SMALL AMOUNT OF ALICIA URINE OUTPUT. COCCYX SLIGHTLY RED, BUT NO BREAKDOWN NOTED. WILL ASSIST WITH TURNING EVERY 2 HOURS AND PRN. CALL LIGHT WITHIN REACH. PT VERBALIZED CONCERN THAT SHE IS NOT CURRENTLY TAKING 1/2 VIMPAT IN THE AM. ALSO, SHE WOULD LIKE TO RESUME HER VITAMIN D 1000 IU BY MOUTH DAILY. WILL DISCUSS WITH EFM DURING ROUNDS. ANTICIPATE POSSIBLE STATUS CHANGE LATER TODAY. WILL REQUEST PT/OT CONSULT.
--- NOTE | 2022-03-20 10:00 | NUR ---
DR. SHAFER IN TO SEE PT. FULL UPDATED GIVEN. PT SON CHIP AT BEDSIDE-HE HAS BEEN UPDATED WELL. PT MADE PCU STATUS. PT/OT CONSULT ORDERED.
--- NOTE | 2022-03-20 12:00 | NUR ---
ASSISTED PT TO SIT AT THE BEDSIDE. PT SOB WITH EXERTION. FIO2 TITRATED UP TO 8 LITERS OXYMIZER TO KEEP SATS>90%. LUNGS COARSE AND WHEEZY TO UPPER LOBES AND DIMINISHED IN THE BASES. COUGH STILL HARSH AND NONPRODUCTIVE. 1ST DOSE OF ROBITUSSIN GIVEN. PT REQUESTS TO REMAIN SITTING UP AT THE BEDSIDE FOR NOW. REQUEST GRANTED. PT SON AT THE BEDSIDE ASSISTING WITH LUNCH TRAY.
--- NOTE | 2022-03-20 14:00 | NUR ---
PT ASSISTED OOB TO CHAIR BY PHYSICAL THERAPY. OT WORKING WITH PT WELL. PT SON AND SISTER AT BEDSIDE AND CALL LIGHT WITHIN REACH.
--- NOTE | 2022-03-20 16:00 | NUR ---
PT ASSISTED BACK TO BED WITH MODERATE ASSISTANCE-TOLERATED WELL. PT REMAINS SOB WITH EXERTION AND AUDIBLY WHEEZY AT TIMES, BUT SATS TRENDING 88-94% ON 6L OXYMIZER. PT SAT UP IN THE CHAIR X 2 HOURS. COUGH STILL HARSH AND NONPRODUCTIVE, BUT IS SOUNDS MORE LOOSE THAN PREVIOUS ASSESSMENTS. PT FAMILY REMAINS AT BEDSIDE.
--- NOTE | 2022-03-20 18:42 | NUR ---
HARSH COUGH CONTINUES-MED WITH ROBITUSSIN PO-SEE EMAR. PT DENIES PAIN AND SOB WHILE AT REST. SATS STILL >90% ON 6 LITERS NASAL CANULA. CALL LIGHT WITHIN REACH.
--- NOTE | 2022-03-20 19:00 | NUR ---
ASSUMPTION OF CARE PT A&OX4, PARTICIPATES IN CONVERSATION AND CARE. PT ON 6L NC WITH SPO2 >94%. LUNGS ARE COARSE WITH WHEEZES. SHE CONTINUES TO HAVE HARSH COUGH. SINUS RHTYHM ON MONITOR WITH RATE IN 80S. BP STABLE WITH MAP >65, STRONG PULSES. ABDOMEN SOFT, BOWEL TONES HYPOACTIVE. PT DENIES GI UPSET. PT TOLERATES PO FLUIDS AND MEDICATIONS WELL. MURPHY PATENT AND DRAINING YELLOW URINE TO GRAVITY. PT REPORTS DIFFICULTY SLEEPING FOR THE LAST TWO NIGHTS. HOSPITALIST NOTIFIED AND ORDER RECEIVED FOR MELATONIN. BED IN LOWEST POSITION, CALL LIGHT WITHIN REACH.
--- NOTE | 2022-03-21 01:15 | NUR ---
UPDATE PT STILL UNABLE TO REST. PT CONTINUES TO COUGH AND GIVEN ROBITUSSIN PER EMAR. REPOSITIONED FOR COMFORT. BED IN LOW POSITION, CALL LIGHT WITHIN REACH.
--- NOTE | 2022-03-21 05:40 | NUR ---
SHIFT SUMMARY PT HAS BEEN RESTLESS THROUGHOUT NIGHT. SHE IS ON 6L NC WITH SPO2 >95%. SHE CONTINUES TO HAVE HARSH COUGH. LUNGS COARSE THROUGHOUT. PT A&OX3, PARTICIPATES IN CONVERSATION AND CARE. BOWEL TONES ACTIVE, ABDOMEN SOFT. PT DENIES GI UPSET. SINUS RHYTHM ON MONITOR WITH RATE IN 80S. BP STABLE. MURPHY PATENT AND DRAINING TO GRAVITY. BED IN LOWEST POSITION, CALL LIGHT WITHIN REACH.
[2022-03-21 06:03] LABS: BASOPHILS ABSOLUTE AUTO 0.09 K/mm3 (0.00-0.23); BASOPHILS PERCENT AUTO 1 % (0-2); EOSINOPHILS PERCENT AUTO 0 % (0-6); Hematocrit 39.5 % (33.0-51.0); Hemoglobin 13.1 g/dL (11.5-16.0); IMMATURE GRAN ABSOLUTE AUTO 0.63 K/mm3 (0.00-0.10); IMMATURE GRAN PERCENT AUTO 5 % (0-1); LYMPHOCYTES ABSOLUTE AUTO 0.92 K/mm3 (0.84-5.20); LYMPHOCYTES PERCENT AUTO 8 % (21-46); MONOCYTES ABSOLUTE AUTO 1.03 K/mm3 (0.16-1.47); MONOCYTES PERCENT AUTO 9 % (4-13); Mean Corpuscular HGB 31.8 pg (26.0-34.0); Mean Corpuscular HGB Conc 33.2 g/dL (31.5-36.5); Mean Corpuscular Volume 96 fL (80-100); Mean Platelet Volume 9.9 fL (9.1-12.4); NEUTROPHILS ABSOLUTE AUTO 9.19 K/mm3 (1.96-9.15); NEUTROPHILS PERCENT AUTO 77 % (41-73); Platelet Count 181 K/mm3 (150-400); RDW Coefficient Variation 13.2 % (11.7-14.2); RDW Standard Deviation 47.2 fL (35.1-46.3); Red Blood Cell Count 4.12 M/mm3 (3.80-5.20); White Blood Cell Count 11.86 K/mm3 (4.00-11.30)
[2022-03-21 06:22] LABS: Albumin, Blood 2.6 g/dL (3.4-5.0); Albumin/Globulin Ratio 0.9 (0.8-1.8); Bilirubin, Total 0.2 mg/dL (0.1-1.0); Bun/Creatinine Ratio 34.1 (12.0-20.0); Creatinine, Blood 0.67 mg/dL (0.40-1.00); Potassium, Blood 4.7 mmol/L (3.5-5.5); Total Protein, Blood 5.6 g/dL (6.4-8.2)
[2022-03-21 07:55] LABS: Calcium, Ionized (POC) 1.26 mmol/L (1.10-1.46); Chloride (POC) 91 mmol/L (98-108); Glucose (ISTAT POC) 130 mg/dL (70-99); Hemoglobin (POC) 14.3 g/dL (12.0-16.0); Potassium (POC) 3.5 mmol/L (3.5-5.5); Sodium (POC) 136 mmol/L (135-148); Total CO2 (POC) 39 mmol/L (21-32)
--- NOTE | 2022-03-21 09:21 | NUR ---
Assumed care of pt at 0700. Report received from Liss MCGUIRE. Pt A&O x 2. Answers questions. Follows commands. Verbalizes needs. Pleasant and cooperative with care. SpO2 90% or greater with 5 LPM NC. SR per monitor. BP stable.
--- NOTE | 2022-03-21 13:36 | NUR ---
Spiritual Care Visit. Pt. is awake and sitting inclined in her bed as she welcomes my visit. Pt. is pleasant. Pt. displays some difficulty with deeper breaths, so this riprap placer kept the visit short. Pt. displays evidence of awareness and engagement. Rapport is quickly established. Prayed for Pt. Pt. verbalized gratitude for her medical care as well as the spiritual care visit.
--- NOTE | 2022-03-21 17:33 | NUR ---
SUMMARY Pt is PCU status. Neuro: A&O x 2. Answers questions, follows commands, verbalizes needs. Has hoarse whisper of a voice. PERRL. Musc: Moves all ext with equal strength and ROM. Able to assist with some ADLs. Out of bed many times today to sit in chair, requires 1 person assist with walker. Resp: Exp wheeze in all lung bowman. SpO2 90% or greater with 8 LPM oxymizer. Saline nasal spray ordered for pt, to assist with congestion and dry sinuses. Dyspnea with exertion, but seems to recover SpO2 more quickly with each attempt to mobilize. Cardiac: SR per monitor. BP stable. Edematous BLE. PICC line to RUE. CHG bath given this shift. GI: Two BMs today. One incontient, brown, unformed. Another continent into commode, brown, unformed. No signs of tenderness with abd palpation. : Angulo catheter in place. Draining clear, yellow urine. Skin: Unchanged from initial assessment. Psychosocial: Family at bedside for majority of day. Family is supportive and assists pt with ADLs.
[2022-03-22 05:56] LABS: BASOPHILS ABSOLUTE AUTO 0.04 K/mm3 (0.00-0.23); BASOPHILS PERCENT AUTO 0 % (0-2); EOSINOPHILS ABSOLUTE AUTO 0.01 K/mm3 (0.00-0.68); EOSINOPHILS PERCENT AUTO 0 % (0-6); Hematocrit 43.7 % (33.0-51.0); IMMATURE GRAN ABSOLUTE AUTO 0.49 K/mm3 (0.00-0.10); IMMATURE GRAN PERCENT AUTO 5 % (0-1); LYMPHOCYTES ABSOLUTE AUTO 0.96 K/mm3 (0.84-5.20); LYMPHOCYTES PERCENT AUTO 9 % (21-46); MONOCYTES ABSOLUTE AUTO 0.84 K/mm3 (0.16-1.47); MONOCYTES PERCENT AUTO 8 % (4-13); Mean Corpuscular Volume 97 fL (80-100); Mean Platelet Volume 9.8 fL (9.1-12.4); NEUTROPHILS ABSOLUTE AUTO 7.83 K/mm3 (1.96-9.15); NEUTROPHILS PERCENT AUTO 77 % (41-73); Platelet Count 211 K/mm3 (150-400); RDW Coefficient Variation 12.8 % (11.7-14.2); RDW Standard Deviation 45.7 fL (35.1-46.3); Red Blood Cell Count 4.52 M/mm3 (3.80-5.20); White Blood Cell Count 10.17 K/mm3 (4.00-11.30)
[2022-03-22 06:25] LABS: Bun/Creatinine Ratio 23.3 (12.0-20.0); Calcium, Blood 9.5 mg/dL (8.5-10.1); Creatinine, Blood 0.65 mg/dL (0.40-1.00); Potassium, Blood 4.4 mmol/L (3.5-5.5)
--- NOTE | 2022-03-22 07:03 | NUR ---
Neuro: AOX4, able to communicate needs and wants, voice with low volume p/o extubation. Resp: 6L Oxygen via Oxymizer and maintainig sats above 92%. Expiratory wheezes audible, SOB with exertion. Cardiac: NSR 90, pulses strong bilateral radial and pedal. Edema bilateral LE +2 pitting. Musc: Able to move all extrimities, bilat LE weakness and requires moderate assistance to transfer from bed: GI: Takes medications whole, had x2 loose bowel movements yesterday. Hyperactive bowel sounds, declines pain or discomfort. non-distended, soft and round : 16F Angulo clean, paten and draining to urometer. output 1450ml thought shift, urine clear-yellow with no odor. Angulo care done. Powerglind to RUM, drawing blood and flushes easily. INT
--- NOTE | 2022-03-22 10:19 | NUR ---
CARE ASSUMPTION THIS RN ASSUMED CARE AT 0700. VSS. TELE SR 80S. PATIENT IS ALERT AND ORIENTED X4. PATIENT REPORTS NO PAIN, BUT STATES HER THROAT IS SORE. PATIENT REPORTS NO SHORTNESS OF BREATH AT REST, BUT BECOMES SHORT OF BREATH WITH ACTIVITY. PATIENT REPORTS NO CHEST PAIN/PRESSURE. MURPHY CATH IN PLACE DRAINING WITH GRAVITY, YELLOW COLOR. SKIN IS FARGILE AND HAS SCATTERED BRUISING THROUGHOUT. SEE SHIFT ASSESSMENT FOR FURTHER DETIALS. PHYSICAL THERAPY IN TO SEE PATIENT THIS AM. PATIENT UP TO SHOWER CHAIR. PATIENT SON AT BEDSIDE AND UPDATED ON PATIENTS CONDITION. PATIENT CALLS APPROPRIATELY. PLAN OF CARE IS UP TO DATE.
--- NOTE | 2022-03-22 14:13 | NUR ---
UPDATE Md mcguire by to see the patient mid morning. plan is for patient to receive a one time dose a of IV lasix. See emar and orders section. Occupational therpay in room and worked with patient, see assessment section for their assessment. Son at bedside. Plan of care up to date and call lightwith in reach.
--- NOTE | 2022-03-22 16:49 | NUR ---
SHIFT SUMMARY Patient neuro remains intact. vss. tele nsr 80s. patient stood up at the chair multiple times today and did knee dips and walked in room. patient family has been at bedside most of the day. patient calls if needing assistance. rivas is draining with gravity with clear urine. good output this shift. see i&os. no acute changes this shift. call light within reach. plan of care up to date.
--- NOTE | 2022-03-22 19:15 | NUR ---
ASSUMED CARE OF PT @1900. PT RESTING COMFORTABLY IN BED. A&O ALTHOUGH COULD NOT RECALL NAME OF THE HOSPITAL RIGHT AWAY. O2 5L VIA OXYMIZER. RR 20'S, SPO2 >92%. CONTINUOUS CARDIAC MONITORING. HR 100-110. PG YAAKOV PATENT W/SALINE LOCK. PICC ELLYN PATENT AND INFUSING TKO. MURPHY CATH PATENT AND DRAINING TO GRAVITY. PT IS ABLE TO MAKE MINOR ADJUSTMENTS IN POSITION INDEPENDENTLY.
--- NOTE | 2022-03-23 02:33 | NUR ---
PT BECOMING MORE DYSPNEIC AND AGITATED W/REPOSITIONING. WILL DESAT DURING MOVEMENT THEN RECOVERS WHEN STILL. DENIES PAIN AND THAT SHE JUST "NEEDS TIME."
[2022-03-23 05:52] LABS: BASOPHILS ABSOLUTE AUTO 0.01 K/mm3 (0.00-0.23); BASOPHILS PERCENT AUTO 0 % (0-2); EOSINOPHILS PERCENT AUTO 0 % (0-6); Hematocrit 41.1 % (33.0-51.0); Hemoglobin 13.4 g/dL (11.5-16.0); IMMATURE GRAN ABSOLUTE AUTO 0.21 K/mm3 (0.00-0.10); IMMATURE GRAN PERCENT AUTO 2 % (0-1); LYMPHOCYTES ABSOLUTE AUTO 0.91 K/mm3 (0.84-5.20); LYMPHOCYTES PERCENT AUTO 10 % (21-46); MONOCYTES ABSOLUTE AUTO 0.74 K/mm3 (0.16-1.47); MONOCYTES PERCENT AUTO 8 % (4-13); Mean Corpuscular HGB 31.3 pg (26.0-34.0); Mean Corpuscular HGB Conc 32.6 g/dL (31.5-36.5); Mean Corpuscular Volume 96 fL (80-100); Mean Platelet Volume 9.7 fL (9.1-12.4); NEUTROPHILS ABSOLUTE AUTO 6.94 K/mm3 (1.96-9.15); NEUTROPHILS PERCENT AUTO 79 % (41-73); Platelet Count 185 K/mm3 (150-400); RDW Coefficient Variation 12.3 % (11.7-14.2); RDW Standard Deviation 43.2 fL (35.1-46.3); Red Blood Cell Count 4.28 M/mm3 (3.80-5.20); White Blood Cell Count 8.81 K/mm3 (4.00-11.30)
--- NOTE | 2022-03-23 06:14 | NUR ---
SUMMARY NEURO/PSYCH/MOBILITY: PT WAS ABLE TO SLEEP OFF AND ON THROUGHOUT THE NIGHT. PT IS ALERT AND ANSWERS QUESTIONS APPROPRIATLY. THIS MORNING SHE STATED "SHE SLEPT BECAUSE OF THE MUSIC PLAYING" LET HER KNOW THERE WAS NO MUSIC, THEN SHE ASKED FOR MUSIC TONIGHT. PT BECOMES AGITATED W/REPOSITIONING AND FRUSTRATED W/PILLOWS AND BLANKETS NOT BEING COMFORTABLE. PT IS ABLE TO ASSIST IN BOOSTING AND REPOSITIONING. DOES NOT WANT FEET ELEVATED OR TO BE TURNED SIDE TO SIDE. REPOSITIONED PILLOWS AND BOOSTED Q2 HRS. PT IS DIFFICULT TO UNDERSTAND AT TIMES BUT IS COOPERATIVE. MODERATE ASSIST W/ALL ADL'S. PERRL. RESP: PT HAS A PRODUCTIVE COUGH AND DIM LUNG SOUNDS THROUGHOUT W/OCCASIONAL WHEEZE. WHEN PT IS AT REST RR LOW 20'S, SPO2 >92% ON 6L OXYMIZER. WHEN PT IS REPOSITIONED OR EXERTS HERSELF SHE WILL DESAT INTO THE HIGH 70'S LOW 80'S AND IS DYSPNEIC. CARDIAC: CONTINUOUS CARDIAC MONITORING. SR HR 80'S, BP STABLE, MAP >65. GI: PT DENIES NAUSEA OR PAIN. TAKING PO MEDICATIONS AND DRINKING WATER WITHOUT DIFFICULTY. NO BM THIS SHIFT. : MURPHY CATH PATENT AND DRAINING TO GRAVITY. 1500MLS OUTPUT THIS SHIFT. SKIN: ASSESSMENT REMAINS UNCHANGED. IV ACCESS: PG YAAKOV PATENT W/SALINE LOCK. PICC ELLYN PATENT AND INFUSING TKO.
[2022-03-23 06:30] LABS: Bun/Creatinine Ratio 26.7 (12.0-20.0); Creatinine, Blood 0.67 mg/dL (0.40-1.00); Magnesium, Blood 2.1 mg/dL (1.6-2.4); Potassium, Blood 4.4 mmol/L (3.5-5.5)
--- NOTE | 2022-03-23 08:30 | NUR ---
DR. SUTTON AT BEDSIDE ORDER FOR 1V CXR
--- NOTE | 2022-03-23 09:28 | NUR ---
ASSUMED PT CARE AT 0715 PT LYING IN BED ALERT AND ORIENTED AND ABLE TO MAKE NEEDS KNOWN. OXYGEN AT 4L VIA OXYMIZER; HOWEVER SHORTLY INCREASED TO 8L D/T PT'S OXYGEN SATURATIONS DROPPING TO 70'S DURING MINIMAL ACTIVITY WITH TURNING/REPOSITIONING IN BED. PT HAS A VERY WEAK COUGH; UNABLE TO PRODUCE ANY SPUTUM, BUT OCCASIONAL THICK, RED IN COLOR. PT BECOMES VERY CONFUSED AND AGITATED AT TIMES, USUALLY NOTED DURING HYPOXIC EPISODES. STARTS PULLING AT ALL LINES/TUBING AND FORGETS WHERE SHE IS AT; HOWEVER, DESPITE ANXIETY, SHE IS ABLE TO BE REDIRECTED WITH CONVERSATION. ORDERS WERE OBTAINED TO D/C STEFFANY AND INCREASE MELATONIN TO 10MG AT BEDTIME. PT STATES SHE HASN'T SLEPT MUCH SINCE SHE'S BEEN HERE. MURPHY CATHETER REMAINS PATENT AND DRAINING TO GRAVITY; CLEAR YELLOW. SHE HAS A PICC TO HER ELLYN AND A POWERGLIDE TO YAAKOV. BED ALARM SET D/T PT SELF TRANSFERRING FROM CHAIR TO BED. SHE IS INDEPENDENT WITH REPOSITIONING IN BED. WILL CONTINUE TO MONITOR.
--- NOTE | 2022-03-23 11:55 | NUR ---
PHYSICAL THERAPY AT BEDSIDE
--- NOTE | 2022-03-23 14:31 | NUR ---
CHANGE IN CONDITION PT C/O FEELING DIZZY AND CHANGE IN VISION. MEASURED BP AT THIS TIME, WHICH WAS CONSIDERABLY LOWER THAN WHAT SHE HAS BEEN TRENDING AT THIS SHIFT. CALLED DR. SUTTON AND UPDATED REGARDING URINE OUTPUT AFTER LASIX WAS GIVEN AND RECEIVED NEW ORDERS FOR 250CC BOLUS OF NS. PT ALREADY STATES HER VISION IS FEELING BETTER AND HER DIZZINESS IS RESOLVING. BP BACK TO BASELINE, WHICH WAS SYSTOLIC 160'S PRIOR.
--- NOTE | 2022-03-23 17:38 | NUR ---
END OF SHIFT SUMMARY PT HAS BEEN UP MOST OF DAY. STILL HAS HYPOXIC EPISODES WITH MINIMAL EXERTION/ACTIVITY; HOWEVER, SHE TENDS TO RECOVER HER SATURATIONS. OXYMIZER REMAINS ON WITH 6L OF OXYGEN. SHE IS INDEPENDENT WITH REPOSITIONING IN BED. SISTER AND SON HAVE BEEN AT BEDSIDE MOST OF DAY ASSISTING WITH PT'S ANXIETY. EPISODE OF PT BEING DIZZY RESOLVED AFTER ONE 250CC BOLUS OF NS. BP'S HAVE BEEN STABLE, SEE FLOWSHEET. PT HAS BEEN SITTING UP AT EDGE OF BED TO EAT ALL MEALS; PT REQUIRES VERBAL CUES/REMINDERS NOT TO EAT WHEN SOB TO AVOID ASPIRATION. PT CONTINUES TO BE MEDICATED WITH MUCINEX D/T COUGH, WHICH HAS BEEN EFFECTIVE. MURPHY CATHETER REMAINS PATENT AND DRAINING TO GRAVITY; CLEAR, YELLOW URINE. CALL LIGHT WITHIN REACH AND PT IS ABLE TO MAKE NEEDS KNOWN. WILL CONTINUE TO MONITOR UNTIL REPORT IS HANDED OFF TO ONCOMING RN.
--- NOTE | 2022-03-23 18:49 | NUR ---
TRANSFER SUMMARY: PATIENT HAS BEEN TRANSFERRED TO [facility] FOR REHAB MEDICINE FROM ICU 4 PATIENT HAS BEEN DENYING CHEST PAIN, PRESSURE. DOES HAVE SOB AT REST BUT IS DUE TO OXYGEN REQUIREMENT AND HAS IMPROVED FROM THIS AM DUE TO RECIEVING A 1 X DOSE OF LASIX. HAD GREAT OUTPUT. PATIENT IS CURRENLTY ON 6L VIA OXYMIZER AND SPO2 IS 92%OR GREATER. PATIENT HAS BEEN ON SMALL BITS, AND SIPS SHE OCCASSIONALLY NEEDS COACHED AND WITH INCREASED O2 DEMAND RR CAN INCREASE SIGNIFICANTLY. PATIENT DOES BECOME INCREASINGLY SOB WITH EXERTION. AND CAN DESATURATE TO THE 70'S INFORMED BY NIGHT RN. MURPHY CATHETER IS CURRENLTY DRAINING TO GRAVITY WELL. AND PATIENT VITALS SIGNS SHOW NO ACUTE DISTRESS AT TIME OF TRANSFER, WILL MONITOR UNTIL SHIFT CHANGE.
--- NOTE | 2022-03-24 06:20 | NUR ---
SHIFT SUMMARY: A&OX3, ABLE TO FOLLOW DIRECTIONS. MAKING NEEDS KNOWN IS DIFFICULT FOR THE PT DUE TO SEVERE HOARSENESS OF VOICE FROM INTIBATION. PT DENIES CHEST PAIN/PRESSUE. HR SR IN 80'S. REPORTS MILD SOB. O2 SATS 95% ON 6 LPM HIGH FLOW WITH OCCASIONAL DESATURATIONS INTO 80'S WHEN NC REMOVED, PT RECOVERS WITHOUT NEED FOR ADDITIONAL O2. MURPHY CATHETER IN PLACE DRAINING CLEAR, YELLOW URINE WITHOUT DIFFICULTY. PT HAS HAD ACUTE CHANGES THROUGHOUT THE NIGHT.
[2022-03-24 06:26] LABS: BASOPHILS ABSOLUTE AUTO 0.01 K/mm3 (0.00-0.23); BASOPHILS PERCENT AUTO 0 % (0-2); EOSINOPHILS PERCENT AUTO 0 % (0-6); Hemoglobin 13.4 g/dL (11.5-16.0); IMMATURE GRAN ABSOLUTE AUTO 0.13 K/mm3 (0.00-0.10); IMMATURE GRAN PERCENT AUTO 1 % (0-1); LYMPHOCYTES PERCENT AUTO 13 % (21-46); MONOCYTES ABSOLUTE AUTO 0.85 K/mm3 (0.16-1.47); MONOCYTES PERCENT AUTO 9 % (4-13); Mean Corpuscular HGB 31.5 pg (26.0-34.0); Mean Corpuscular HGB Conc 32.7 g/dL (31.5-36.5); Mean Corpuscular Volume 96 fL (80-100); Mean Platelet Volume 9.6 fL (9.1-12.4); NEUTROPHILS ABSOLUTE AUTO 6.87 K/mm3 (1.96-9.15); NEUTROPHILS PERCENT AUTO 76 % (41-73); Platelet Count 184 K/mm3 (150-400); RDW Coefficient Variation 12.4 % (11.7-14.2); RDW Standard Deviation 43.8 fL (35.1-46.3); Red Blood Cell Count 4.26 M/mm3 (3.80-5.20); White Blood Cell Count 9.06 K/mm3 (4.00-11.30)
[2022-03-24 06:56] LABS: Blood Urea Nitrogen 16 mg/dL (8-24); Bun/Creatinine Ratio 26.3 (12.0-20.0); Calcium, Blood 9.4 mg/dL (8.5-10.1); Chloride, Blood 94 mmol/L (98-108); Creatinine, Blood 0.61 mg/dL (0.40-1.00); Glomerular Filtration Rate 97 (60-); Glucose, Blood 99 mg/dL (70-99); Potassium, Blood 4.4 mmol/L (3.5-5.5); Sodium, Blood 139 mmol/L (136-145)
[2022-03-24 06:57] LABS: Anion Gap Unable to Calculate mmol/L (6-16); CO2, Blood >45 mmol/L (21-32)
[2022-03-24 10:42] LABS: Base Excess Venous 24.6 mmol/L; Bicarbonate Venous 44.2 mmol/L (24.0-30.0); PCO2 Venous 76.5 mmHg (38-42); pH Blood Venous 7.42 (7.34-7.37)
--- NOTE | 2022-03-24 11:50 | NUR ---
RN PLACED CALL TO DR. SUTTON - PT HAS HAD HER OXYGEN INCREASED TO 7LPM TO MAINTAIN O2 SATS GREATER THAN 91%. RN AND DR. SUTTON DISCUSSED RESULTS OF RECENT VBG, PT IS RETAINING SIGNIFICANT CO2. DR. SUTTON WOULD LIKE TO START BI-PAP. PT'S SON, AKIL, IS AT THE BEDSIDE. RN DISCUSSED BI-PAP WITH PT'S SON AND UPDATED ON THE TREATMENT PLAN. VERBAL UPDATE TO RT CATINA ON THE FLOOR.
--- NOTE | 2022-03-24 14:00 | NUR ---
PT'S SISTER ADOLPH IS AT HER BED SIDE, AND STATES THAT SHE OBSERVED SOME BRIEF SEIZURE ACTIVITY. PT IS NOW ACTING MORE CONFUSED, PULLING OFF HER O2 SAT MONITOR FROM HER EAR, FIDGETING/RESTLESS IN BED, AND IS ATTEMPTING TO GET OUT OF BED. RN REMOVED BIPAP AND APPLIED 6LPM O2, PT WAS ABLE TO MAINTAIN HER SATS. SHE REMAINED CONFUSED WHILE OFF BIPAP FOR 15-20 MINUTES. RN PLACED BIPAP MASK BACK ON PT. SHE IS NOW BETTER ABLE TO TOLERATE THE MASK, AND IS PLAYING CARDS AGAIN WITH HER SISTER ADOLPH AT THE BEDSIDE.
--- NOTE | 2022-03-24 16:23 | NUR ---
PT BEGAN THE SHIFT APPEARING IN DISTRESS AROUND 0800, WHEEZING WITH TIGHT COARSE LUNG SOUNDS. RESPIRATORY THERAPY RESPONDED AND GAVE PT PRN NEB TREATMENTS. RN CALLED DR. SUTTON, WHO ORDERED PT TO BEGIN BIPAP. BIPAP SETTINGS ARE 14/6, RATE 14BPM, FI O2 55%. PT IS TOLERATING BIPAP, HER FAMILY IS AT HER BEDSIDE, SON AKIL AND SISTER ADOLPH. PT IS SITTING IN HER BED, PLAYING CARDS. SHE IS ABLE TO MAKE HER NEEDS KNOWN.
[2022-03-24 18:58] LABS: Base Excess Venous 23.3 mmol/L; Bicarbonate Venous 43.5 mmol/L (24.0-30.0); PCO2 Venous 74.4 mmHg (38-42); PO2 Venous 77.1 mmHg (38-42); pH Blood Venous 7.42 (7.34-7.37)
--- NOTE | 2022-03-24 18:58 | NUR ---
SHIFT SUMMARY PT TOLERATED THE BI-PAP WELL FOR THE MAJORITY OF THE SHIFT. A& X 2-3, WITH EPISODES OF CONFUSION AND FORGETFULNESS. POWERGLIDE TO ELLYN DRAWS WELL FOR LABS, PICC LINE IN YAAKOV. SISTER AND SON WERE AT BEDSIDE FOR MOST OF THE SHIFT. PT PLAYED CARDS. MURPHY INSERTED, DRAINING YELLOW URINE TO GRAVITY.AFTER PT, PT REQUESTED A BI-PAP BREAK TO REST THE SKIN ON HER NOSE BRIDGE. RN CALLED RT BRII AND REQUESTED A GECKO PAD (SKIN PROTECTOR HER NOSE BRIDGE) ON HIS NEXT ROUNDS. CURRENTLY SHE IS ON 5LPM NC AND SATING AT 97%.
--- NOTE | 2022-03-24 19:56 | NUR ---
ASSUMED PT CARE FORM LEXIE RN ON . PT RESTING IN BED WITH SISTER ATTENTIVE AT BEDSIDE. PT ALERT, APPEARS ORIENTED BUT UNABLE TO DETERMIN EXACT MENTATION DUE TO HOARSE VOID, VERY DIFFICULT TO HEAR OR UNDERSTAND. REPSONDS CORRECTLY TO DIRECTIONS AND IS ABLE TO INDICATE WHAT SHE WANTS MOST OF THE TIME WITH POINTING. SISTER REPORTS PT HAS HAD MULTIPLE SEIZURES THROUGHOUT THE DAY BUT IS UNABLE TO GIVE SPECIFIC INFORMATION TO WHAT SEIZURES APPEAR LIKE STATING "SHE JUST MOVES HER ARMS AND LEGS" BUT IS UNABLE TO GIVE ME FURTHER DETAIL. WILL CONTINUE TO MONITOR. PT ON HIGH FLOW O2 WITH O2 SAT > 92% BUT PT NEEDING REMINDING TO KEEP HIGH FLOW CANNULA IN PLACE. REPOSITIONED FOR COMFORT. CALL LIGHT IN REACH. SEIZURES PADS ON BED.
[2022-03-25 03:57] LABS: BASOPHILS ABSOLUTE AUTO 0.01 K/mm3 (0.00-0.23); BASOPHILS PERCENT AUTO 0 % (0-2); EOSINOPHILS PERCENT AUTO 0 % (0-6); Hemoglobin 13.2 g/dL (11.5-16.0); IMMATURE GRAN ABSOLUTE AUTO 0.08 K/mm3 (0.00-0.10); IMMATURE GRAN PERCENT AUTO 1 % (0-1); LYMPHOCYTES PERCENT AUTO 8 % (21-46); MONOCYTES ABSOLUTE AUTO 0.35 K/mm3 (0.16-1.47); MONOCYTES PERCENT AUTO 4 % (4-13); Mean Corpuscular HGB 31.4 pg (26.0-34.0); Mean Corpuscular Volume 95 fL (80-100); Mean Platelet Volume 9.3 fL (9.1-12.4); NEUTROPHILS ABSOLUTE AUTO 7.18 K/mm3 (1.96-9.15); NEUTROPHILS PERCENT AUTO 86 % (41-73); Platelet Count 164 K/mm3 (150-400); RDW Coefficient Variation 12.4 % (11.7-14.2); RDW Standard Deviation 43.2 fL (35.1-46.3); Red Blood Cell Count 4.21 M/mm3 (3.80-5.20); White Blood Cell Count 8.32 K/mm3 (4.00-11.30)
[2022-03-25 05:50] LABS: Albumin, Blood 3.1 g/dL (3.4-5.0); Bilirubin, Total 0.4 mg/dL (0.1-1.0); Bun/Creatinine Ratio 28.4 (12.0-20.0); Calcium, Blood 9.3 mg/dL (8.5-10.1); Creatinine, Blood 0.6 mg/dL (0.40-1.00); Potassium, Blood 4.1 mmol/L (3.5-5.5); Total Protein, Blood 6.1 g/dL (6.4-8.2)
--- NOTE | 2022-03-25 06:22 | NUR ---
SHIFT SUMMARY: NO OBSERVED OR REPORTED SEIZURES THROUGHOUT THE NIGHT. PT CONFUSED AND PUSHING ASSISTANCE AWAY INITIALLY WHEN WAKING UP BUT AFTER WAKING BECOME COOPERATIVE. O2 SATS > 92% WHEN RESTING IN BED, O2 SATS DROP LOW 79% WHEN COUGHING, TALKING, OR MOVING IN BED. RECOVERS O2 SATS WITH DIFFICULTY DUE TO BREATHING THROUGH MOUTH, ENCOURAGED TO BREATH THROUGH NOSE. PT ABLE TO SLEEP INTERMITTENTLY THROUGHOUT THE NIGHT. NO ACUTE CHANGES. CALL LIGHT IN REACH.
--- NOTE | 2022-03-25 16:54 | NUR ---
SHIFT SUMMARY PT IS ALERT AND ORIENTED X 4, SHE IS ABLE TO MAKE HER NEEDS KNOWN. HER VOICE IS HOARSE DUE TO EXTUBATION ON 03/19. SHE IS COOPERATIVE W/ CARE BUT IS FIDGETY/RESTLESS AT TIMES. SPO2 MAINTAINED >95% VIA AIRVO, 40L @ 55% FIO2. AT TIMES SHE DESATS W/ EXERTION BUT RECOVERS QUICKLY. OCCASIONAL WET COUGH NOTED. TELE MONITORING IN PLACE, HR IS SINUS RYTHM 80'S, BP STABLE. SHE HAS DENIED FEELINGS OF CHEST PAIN/PRESSURE. SHE HAS DENIED FEELINGS OF NAUSEA. SHE HAS BEEN UP IN CHAIR FOR LUNCH/AFTERNOON. MURPHY CATHETER IS IN PLACE AND DRAINING TO GRAVITY LIGHT YELLOW OUTPUT. HER SISTER WELL HER SON HAVE BEEN AT BEDSIDE. PICC LINE IN ELLYN AND PG IN YAAKOV ARE SALINE LOCKED. PT IS NOW SITTING UP IN BED PLAYING CARDS W/ SON. CALL LIGHT IS W/ IN REACH. WILL CONTINUE TO MONITOR UNTIL REPORT GIVEN.
--- NOTE | 2022-03-25 19:41 | NUR ---
ASSUME PT CARE FORM KISHOR MCGUIRE ON DAYSHI. PT REPOSITIONED IN BED FOR COMFORT. PT IS A&OX2-3, FORGETFUL AT TIMES. DENIES ANY CHEST PAIN, HR SR IN 80'S. REPORTS IMPROVED SOB. PT HAS HOARSE VOICE, IMPORVED FROM LAST NOC SHIFT. ABLE TO ARTICULATE MORE WORDS. O2 SATS > 92% ON HUMIDIFIED O2 NC, HIGH FLOW WITH OXYGEN AT 40 AND FIO2 AT 55. PT DESATURATES INTO HIGH 70'S AT TIMES WITH EXERTION OR SPEAKING, RECOVERS SLOWLY DUE TO DIFFICUTLY REMEMBERING TO BREATH THROUGH NOSE, NEEDS FREQUENT REMINDERS. LEFT WATCHING TV, CALL LIGHT IN REACH.
[2022-03-26 04:18] LABS: BASOPHILS ABSOLUTE AUTO 0.01 K/mm3 (0.00-0.23); BASOPHILS PERCENT AUTO 0 % (0-2); EOSINOPHILS PERCENT AUTO 0 % (0-6); Hematocrit 37.5 % (33.0-51.0); Hemoglobin 12.5 g/dL (11.5-16.0); IMMATURE GRAN ABSOLUTE AUTO 0.03 K/mm3 (0.00-0.10); IMMATURE GRAN PERCENT AUTO 0 % (0-1); LYMPHOCYTES ABSOLUTE AUTO 0.72 K/mm3 (0.84-5.20); LYMPHOCYTES PERCENT AUTO 11 % (21-46); MONOCYTES ABSOLUTE AUTO 0.26 K/mm3 (0.16-1.47); MONOCYTES PERCENT AUTO 4 % (4-13); Mean Corpuscular HGB 31.5 pg (26.0-34.0); Mean Corpuscular HGB Conc 33.3 g/dL (31.5-36.5); Mean Corpuscular Volume 95 fL (80-100); Mean Platelet Volume 9.9 fL (9.1-12.4); NEUTROPHILS ABSOLUTE AUTO 5.65 K/mm3 (1.96-9.15); NEUTROPHILS PERCENT AUTO 85 % (41-73); Platelet Count 141 K/mm3 (150-400); RDW Coefficient Variation 12.7 % (11.7-14.2); RDW Standard Deviation 43.8 fL (35.1-46.3); Red Blood Cell Count 3.97 M/mm3 (3.80-5.20); White Blood Cell Count 6.67 K/mm3 (4.00-11.30)
--- NOTE | 2022-03-26 05:24 | NUR ---
SHIFT SUMMARY: PT SELPT THROUGH MAJORITY OF SHIFT. OCCASIONAL DESATURATIONS INTO 80'S WITH COUGHING/TALFKING, ABLE TO RECOVER WITH DEEP BREATHING. NO SEIZURE ACTIVITY NOTED. NO ACUTE CHANGES NOTED OVERNIGHT.
[2022-03-26 08:03] LABS: Magnesium, Blood 2.2 mg/dL (1.6-2.4)
[2022-03-26 08:49] LABS: Albumin/Globulin Ratio 1.1 (0.8-1.8); Bilirubin, Total 0.5 mg/dL (0.1-1.0); Bun/Creatinine Ratio 27.8 (12.0-20.0); Calcium, Blood 9.7 mg/dL (8.5-10.1); Creatinine, Blood 0.65 mg/dL (0.40-1.00); Globulin, Blood 2.8 g/dL (2.2-4.0); Total Protein, Blood 5.8 g/dL (6.4-8.2)
--- NOTE | 2022-03-26 17:17 | NUR ---
SHIFT SUMMARY PT HAS BEEN RESTING QUIETLY IN ROOM. PT WORKED WITH OCCUPATIONAL THERAPY AND SPENT SEVERAL HOURS UP IN A CHAIR IN ROOM. PT BECAME FRUSTRATED EASILY WITH CARE. PT'S FAMILY MEMBER SPENT A LARGE PORTION OF THE DAY IN ROOM WITH PT, THE PT WAS MORE COOPERATIVE WITH CARE AND FRUSTRATED LESS EASILY WHILE FAMILY WAS PRESENT. SPO2 FELL TO 85% WITH ACTIVITY IN THE MORNING, THEY WERE SLOW TO RECOVER WITH 100% FiO2 AND REMAINED 89-91%, FiO2 WAS TITRATED UP TO 55% AND SPO2 REMAINED 90% OR GREATER FOR THE REMAINDER. ALL OTHER VITAL SIGNS STABLE.
--- NOTE | 2022-03-26 19:27 | NUR ---
ASSUMPTION OF CARE: PATIENT IS RESTING PEACEFULLY UPRIGHT IN BED CURRENLTY WEARING THE V60 SETTINGS OF 40L 35%FIO2. PATIENT APPEARS AND ENDORSES BEING IN NO ACUTE DISTRESS. DENIES PAIN, NO CHEST PAIN/PRESSURE OR SOB. ABD IS NONTENDER AND PAIN FREE. PATIENT HAS BEEN UPGRADED ST ORDERS WHICH IS AN IMPROVEMENT SINCE WHEN I TRANSFERRED THE PATIENT FROM ICU. BLOOD PRESSURE IS NORMOTENSIVE, AND SPO2 IS CURRENLTY RESTING AT 88-91% ON ABOVE SETTINGS. PATIENT STILL HAS MURPHY CATHETER, BUT WITH INCREASED MOVEMENT SHOULD SOON BE ABLE TO REMOVE. PATIENT DENIES DISCOMFORT WITH THIS. PATIENT IS CLEAN, AND IS ALERT AND ORIENTED AT THIS TIME, WILL CONTINUE TO MONITOR.
--- NOTE | 2022-03-26 20:57 | NUR ---
TRANSFER SUMMARY: CHEMA WAS TRASPORTED VIA BED BY 2 X PCT'S ON 6L VIA NC DUE TO NO MONITORING ON TRANSPORT. WHILE AT REST PATIENT WAS ON 4.5 L WITH NO ISSUES SPO2 >95%. REPORT WAS GIVEN TO GIO EDOUARD RN, WITH NO FURTHER QUESTIONS COMMENTS OR CONCERNS. PATIENT WAS IN NO SIGN OF DISTRESS AT TIME OF TRANSPORT. 2100 MEDS GIVEN. NO CONCERNS FROM THIS RN ABOUT TRANSFER. PATIENT STATUS IMPROVING. PATIENT AGREEABLE AND HAS NO CONCERNS OR QUESTIONS EITHER AT TIME OF TRANSFER.
--- NOTE | 2022-03-26 22:07 | NUR ---
67 YR OLD FEMALE RECEIVED FROM PCU. ALERT TO QUESTIONS ASKED. RESPS CONFGESTED PER AUSCULTATION. HX SZ DO. SZ PRECAUTIONS STARTED. O2 PER NC AT 3.5 L/MIN. ORIENTED TO CALL LIGHT. CALL LIGHT IN REACH
--- NOTE | 2022-03-27 03:32 | NUR ---
MEDICAL INSURANCE CLAIMS PROCESSOR SUMMARY PT WAS TRANSFERRED FROM PCU TO MED FLOOR EARLIER IN THE SHIFT WITH DX OF RESP FAILURE. ALERT AND ORIENTED. ON O2 AT 3.5L/MIN PER NC. DENIED PAIN, VOICED SOME ANNOYANCE OF NEEDING MORE PILLOWS TO KEEP HER PROPPED UP FOR BREATHING. NOTED OCCASIONAL COUGHING. VSS. CURRENTLY RESTING QUIETLY WITHOUT NOTED ACUTE DISTRESS. CALL LIGHT IN REACH. RAILS UP X 3. RAILS PADDED PER SZ PROTOCOL. NO NOTED SZ ACTIVITY. WILL CONTINUE TO MONITOR
[2022-03-27] MEDS ORDERED: LEVE500 PO (13:49)
[2022-03-27] MEDS ORDERED: MELATONIN5 M1 PO (13:49)
[2022-03-27] MEDS ORDERED: SPIRIVA RESPIMAT4 G3 INH (13:50)
[2022-03-27] MEDS ORDERED: VISBIOME 112.51 EACH PO (13:50)
[2022-03-27] MEDS ORDERED: PRED20 PO (13:52)
[2022-03-27] MEDS ORDERED: Q-Tussin100 MG/5 M PO (13:53)
--- NOTE | 2022-03-27 15:27 | NUR ---
Brief supportive visit this afternoon. Pt is known to this grant writer from previous hospital stay. Pt sitting on edge on bed playing cards with her son and her sister. Pt denies pain at this time. Pt reports dyspnea has improved. Some dyspnea noted as evidenced by 2-3 word responses. Family reports plan of caregiver set up to assist Pt a couple times a week. No concerns reported by Pt or family at this time. Quick review of plan of care. Ended visit to allow Pt to visit with family. Palliative Care will remain available
--- NOTE | 2022-03-27 16:36 | NUR ---
NOTE/DISCHARGE SUMMARY: PATIENT A&OX4. PLEASANT AND COOPERATIVE c CARE. USES CALL LIGHT APPROPRIATELY AND ABLE TO ADVOCATE FOR HER NEEDS. PATIENT ON O2 3.5L VIA NC c SPO2 RANGES 93-95%. PATIENT PARTICPATE c PT MOBILITY THIS AM AND TOLERATED WELL. PATIENT WAS SITTING UP IN THE CHAIR FOR BREAKFAST AND DANGLING ON THE EOB FOR LUNCH. PATIENT HAS BEEN AMBULATING TO BATHROOM c 1 ASSIST AND GAITBELT. PATIENT HAD MURPHY. BLADDER TRAINED WAS PERFORMED FOR ABOUT 4 HRS PRIOR TO REMOVAL. MURPHY WAS DC'D AROUND 1500. PATIENT WAS ABLE TO VOID WITHOUT ANY DIFFICULTIES. PATIENT REPORTS NO PAIN OR DISCOMFORT TO VIJAY AREA. VITAL SIGNS REVIEWED. PICC LINE TO ELLYN WAS DC'D BY HOUSE MOVER, AYAD CHRISTIAN. POWERGLIDE TO L FOREARM WAS DC'D. PATIENT DISCHARGE HOME. DISCHARGE INSTRUCTIONS PACKET GIVEN TO PATIENT. EDUCATE PATIENT AND FAMILY MEMBER IN ROOM REGARDING ADMITTING DX, S/S, TX AND NEW PRESCRIBED MEDICATIONS. PATIENT AND FAMILY MEMBER IN ROOM REPORTS UNDERSTANDING AND NO FURTHER QUESTIONS. RX WAS FAXED TO PATIENT PREFERRED PHARMACY ([facility]). ALL PATIENT PERSONAL BELONGINGS WERE SENT HOME c THE PATIENT. PATIENT LEFT THE ROOM AT 1635. PATIENT WAS TRANSPORTED VIA WHEELCHAIR BY [employer] STAFF, [address] WAY TO PATIENT FAMILY MEMBER PRIVATE VEHICLE.
== END 2022-03-27 16:48 | disposition home health service (06) | DRG 208 ==
LOC: ER 23:06 → ICUE 03-17 03:35 → ICUW 03-17 03:35 → ICUE 03-17 04:33 → PCU 03-23 18:06 → MEDS 03-26 20:53
PROVIDERS: Family Medicine; Internal Medicine; Internal Medicine Critical Care Medicine; Student in an Organized Health Care Education/Training Program; ADMIT Internal Medicine
PROC: 5A1945Z Respiratory Ventilation, 24-96 Consecutive Hours (ICD-10-PCS; principal; 2022-03-16)
PROC: 0BH17EZ Insertion of Endotracheal Airway into Trachea, Via Natural or Artificial Opening (ICD-10-PCS; 2022-03-16)
PROC: 5A09357 Assistance with Respiratory Ventilation, Less than 24 Consecutive Hours, Continuous Positive Airway Pressure (ICD-10-PCS; 2022-03-16)
PROC: 3E033XZ Introduction of Vasopressor into Peripheral Vein, Percutaneous Approach (ICD-10-PCS; 2022-03-17)
PROC: 5A0945A Assistance with Respiratory Ventilation, 24-96 Consecutive Hours, High Flow/Velocity Cannula (ICD-10-PCS; 2022-03-24)
DX: J96.21 Acute and chronic respiratory failure with hypoxia (principal); G93.41 Metabolic encephalopathy; J18.9 Pneumonia, unspecified organism; J44.1 Chronic obstructive pulmonary disease with (acute) exacerbation; J44.0 Chronic obstructive pulmonary disease with (acute) lower respiratory infection; F10.239 Alcohol dependence with withdrawal, unspecified; N39.0 Urinary tract infection, site not specified; E87.4 Mixed disorder of acid-base balance; R57.9 Shock, unspecified; J96.22 Acute and chronic respiratory failure with hypercapnia; I73.9 Peripheral vascular disease, unspecified; D45 Polycythemia vera; I10 Essential (primary) hypertension; E78.00 Pure hypercholesterolemia, unspecified; G40.909 Epilepsy, unspecified, not intractable, without status epilepticus; G25.81 Restless legs syndrome; E83.39 Other disorders of phosphorus metabolism; G47.00 Insomnia, unspecified; B96.20 Unspecified Escherichia coli [E. coli] as the cause of diseases classified elsewhere; Z20.822 Contact with and (suspected) exposure to COVID-19; W22.8XXA Striking against or struck by other objects, initial encounter; Z79.899 Other long term (current) drug therapy; Z79.82 Long term (current) use of aspirin; Z79.51 Long term (current) use of inhaled steroids; Z98.51 Tubal ligation status; Z87.820 Personal history of traumatic brain injury; Z98.890 Other specified postprocedural states; Z99.81 Dependence on supplemental oxygen; Z79.2 Long term (current) use of antibiotics
CPT/HCPCS: 0241U; 31500; 31720; 36415; 36569; 36600; 51702; 70450; 71045; 80047; 80048; 80053; 80069; 80175; 81001; 82330; 82803; 83605; 83735; 83880; 84100; 85014; 85025; 85027; 87040; 87070; 87077; 87086; 87185; 87186; 87205; 92526; 92610; 93005; 93010; 93306; 94002; 94003; 94640; 94644; 94660; 94664; 94760; 94762; 96365-59; 96366-59; 96368; 96375-59; 97110; 97116; 97162; 97166; 97530; 97535; 99291-25; A9270; C1751; C9113; G0480; J0456; J0696; J1650; J1940; J1953; J2060; J2250; J2405; J2704; J2930; J3411; J3475; J7030; J7050; J7060

== ENCOUNTER 2022-11-29 14:17 | Inpatient (IN) | payer MEDICARE, OTHER ==
[~2022-11-29] VITALS: Ht 165.1 cm; Wt 64.0 kg
[~2022-11-29 14:17] MED LIST changes: +LEVE500 PO; +MELATONIN5 M1 PO; +PRED20 PO; +Q-Tussin100 MG/5 M PO; +SPIRIVA RESPIMAT4 G3 INH; +VISBIOME 112.51 EACH PO
[2022-11-29] MEDS ORDERED: DILTIAZEM 24HR180 M3 PO (14:34)
[2022-11-29] MEDS ORDERED: Simvastatin80 MG PO (14:34)
[2022-11-29] MEDS ORDERED: LACOSAMIDE150 M1 PO (14:35)
[2022-11-29 14:39] LABS: Base Excess Venous 15.8 mmol/L; Bicarbonate Venous 34.9 mmol/L (24.0-30.0); PCO2 Venous 86.9 mmHg (38-42)
[2022-11-29 14:42] LABS: BASOPHILS ABSOLUTE AUTO 0.04 K/mm3 (0.00-0.23); BASOPHILS PERCENT AUTO 0 % (0-2); EOSINOPHILS ABSOLUTE AUTO 0.11 K/mm3 (0.00-0.68); EOSINOPHILS PERCENT AUTO 1 % (0-6); Hematocrit 44.9 % (33.0-51.0); Hemoglobin 14.3 g/dL (11.5-16.0); IMMATURE GRAN ABSOLUTE AUTO 0.02 K/mm3 (0.00-0.10); IMMATURE GRAN PERCENT AUTO 0 % (0-1); LYMPHOCYTES ABSOLUTE AUTO 1.94 K/mm3 (0.84-5.20); LYMPHOCYTES PERCENT AUTO 20 % (21-46); MONOCYTES ABSOLUTE AUTO 1.45 K/mm3 (0.16-1.47); MONOCYTES PERCENT AUTO 15 % (4-13); Mean Corpuscular HGB 31.8 pg (26.0-34.0); Mean Corpuscular HGB Conc 31.8 g/dL (31.5-36.5); Mean Corpuscular Volume 100 fL (80-100); Mean Platelet Volume 10.7 fL (9.1-12.4); NEUTROPHILS ABSOLUTE AUTO 6.11 K/mm3 (1.96-9.15); NEUTROPHILS PERCENT AUTO 63 % (41-73); Platelet Count 163 K/mm3 (150-400); RDW Coefficient Variation 14.3 % (11.7-14.2); RDW Standard Deviation 51.7 fL (35.1-46.3); Red Blood Cell Count 4.49 M/mm3 (3.80-5.20); White Blood Cell Count 9.67 K/mm3 (4.00-11.30)
[2022-11-29 14:49] LABS: Alanine Aminotransfer (ALT/SGP 29 U/L (12-78); Albumin, Blood 3.6 g/dL (3.4-5.0); Alk Phos 63 U/L (50-136); Anion Gap Unable to Calculate mmol/L (6-16); Aspartate Aminotrans (AST/SGOT 44 U/L (12-37); Bilirubin, Total 0.4 mg/dL (0.1-1.0); Blood Urea Nitrogen 21 mg/dL (8-24); CO2, Blood 43 mmol/L (21-32); Calcium, Blood 9.3 mg/dL (8.5-10.1); Chloride, Blood 99 mmol/L (98-108); Globulin, Blood 3.5 g/dL (2.2-4.0); Glomerular Filtration Rate 94 (60-); Glucose, Blood 114 mg/dL (70-99); Potassium, Blood 5.2 mmol/L (3.5-5.5); Sodium, Blood 139 mmol/L (136-145); Total Protein, Blood 7.1 g/dL (6.4-8.2)
[2022-11-29 15:16] LABS: Influenza A, PCR NEGATIVE (NEGATIVE); Influenza B, PCR NEGATIVE (NEGATIVE); Resp Syncytial Virus, PCR NEGATIVE (NEGATIVE); SARS-Cov-2 (COVID-19) PCR, MMC NEGATIVE (NEGATIVE)
[2022-11-29 19:38] VITALS: BP 136/60
[2022-11-29] MEDS ORDERED: ASPI81CH PO (19:46)
--- NOTE | 2022-11-29 23:11 | NUR ---
ASSUMED PT CARE FORM L[place]EN MCGUIRE ON . PT IS A&OX 2-3 WITH SLURRED SPEECH MAKE EXACT ORIENTATION DIFFICULT, FORGETFUL AT TIMES. SON CHIP PRESENT AT BEDSIDE FOR ADMISSION PAPERWORK, BOTH PT AND SON REPORT SON MAKE HEALTHCARE DECISIONS. REVIEWED CODE STATUES WITH PT AND SON, REQUESTS TO BE DNR, DR. HURLEY INFORMED. PT REPORTS FEELING OF SOB IMPROVING. O2 SATS > 90% ON BIPAP /6 AT 50%. BEDSIDE SWALLOW EVALUATION COMPLETED ON 14 LPM VIA NC. TOLERATED FLUIDS AND PUDDING WITHOUT COUGHING OR CHOAKING BUT NEED INSTRUCTIONS TO EAT SLOWLY. PT ABLE TO REMAIN OFF BIPAP FOR APPOXIMATELY 1.5 HOURS. DENIES ANY SOB OR CHEST PAIN. HR SR IN 70'S. AFEBRILE. DENIES NAUSEA. ABLE TO TAKE PILLS WHOLE IN APPLESAUCE. LEFT SITTING UP IN BED WATCHING TV. BIPAP IN PLACE. CALL LIGHT IN REACH.
[2022-11-30] VITALS (7 sets, daily range): BP systolic 108–150; BP diastolic 63–91
[2022-11-30 04:18] LABS: BASOPHILS PERCENT AUTO 0 % (0-2); EOSINOPHILS PERCENT AUTO 0 % (0-6); Hematocrit 43.9 % (33.0-51.0); Hemoglobin 14.1 g/dL (11.5-16.0); IMMATURE GRAN ABSOLUTE AUTO 0.01 K/mm3 (0.00-0.10); IMMATURE GRAN PERCENT AUTO 0 % (0-1); LYMPHOCYTES ABSOLUTE AUTO 0.45 K/mm3 (0.84-5.20); LYMPHOCYTES PERCENT AUTO 12 % (21-46); MONOCYTES ABSOLUTE AUTO 0.03 K/mm3 (0.16-1.47); MONOCYTES PERCENT AUTO 1 % (4-13); Mean Corpuscular HGB 31.7 pg (26.0-34.0); Mean Corpuscular HGB Conc 32.1 g/dL (31.5-36.5); Mean Corpuscular Volume 99 fL (80-100); Mean Platelet Volume 10.5 fL (9.1-12.4); NEUTROPHILS ABSOLUTE AUTO 3.38 K/mm3 (1.96-9.15); NEUTROPHILS PERCENT AUTO 87 % (41-73); Platelet Count 154 K/mm3 (150-400); RDW Coefficient Variation 13.9 % (11.7-14.2); RDW Standard Deviation 50.4 fL (35.1-46.3); Red Blood Cell Count 4.45 M/mm3 (3.80-5.20); White Blood Cell Count 3.87 K/mm3 (4.00-11.30)
[2022-11-30 04:38] LABS: Albumin, Blood 3.5 g/dL (3.4-5.0); Albumin/Globulin Ratio 1.1 (0.8-1.8); Bilirubin, Total 0.3 mg/dL (0.1-1.0); Bun/Creatinine Ratio 37.6 (12.0-20.0); Calcium, Blood 9.1 mg/dL (8.5-10.1); Creatinine, Blood 0.64 mg/dL (0.40-1.00); Globulin, Blood 3.3 g/dL (2.2-4.0); Potassium, Blood 4.5 mmol/L (3.5-5.5); Total Protein, Blood 6.8 g/dL (6.4-8.2)
--- NOTE | 2022-11-30 06:32 | NUR ---
SHIFT SUMMARY: PT'S RESPIRATORY STATUES HAS IMPROVED THROUGHOUT THE SHIFT. INTERMITTENTLY TOLERATING BIPAP AT 12/6 @ 50%, KEEPING O2 SATS > 92%. ABLE TO MAINTAIN 02 SATS > 92% ON 8 LPM WHEN ON BREAKS FROM BIPAP. PT RETAINING URINE > 400 ML PER BLADDER SCAN. UP TO BSC WITH SBA, STILL UNABLE TO VOID. I&O CATH FOR ALICIA COLORED URINE, STRONG SMELLING BUT CLEAR. LEFT RESTING IN BED. CALL LIGHT IN REACH. BED IN LOW POSITION.
[2022-11-30 11:09] LABS: Base Excess Venous 14.1 mmol/L; Bicarbonate Venous 35.4 mmol/L (24.0-30.0); PCO2 Venous 55.6 mmHg (38-42); pH Blood Venous 7.45 (7.34-7.37)
--- NOTE | 2022-11-30 19:48 | NUR ---
ASSUMED PT CARE FROM HOMER MCGUIRE ON . A&OX4. DENIES ANY SOB OR CHEST PAIN/PRESSURE AT THIS TIME. HR SR IN 80-90'S. O2 SATS MAINTAINED > 92% ON HIGH FLOW NC AT 8-10 LPM. ABLE TO EAT TOMATO SOUP SLOWLY WITH SPOON, OCCAIONAL COUGH, CLEARS THROAT WELL. O2 SATS MAINTAINED WHEN COUGHING, WILL MONITOR. BP STABLE, SEE RECORDED VITAL SIGNS. LEFT SITTING UP IN BED WATCHING TV. CALL LIGHT IN REACH.
[2022-12-01 03:41] LABS: BASOPHILS PERCENT AUTO 0 % (0-2); EOSINOPHILS PERCENT AUTO 0 % (0-6); Hematocrit 41.7 % (33.0-51.0); Hemoglobin 13.6 g/dL (11.5-16.0); IMMATURE GRAN ABSOLUTE AUTO 0.03 K/mm3 (0.00-0.10); IMMATURE GRAN PERCENT AUTO 0 % (0-1); LYMPHOCYTES ABSOLUTE AUTO 0.43 K/mm3 (0.84-5.20); LYMPHOCYTES PERCENT AUTO 6 % (21-46); MONOCYTES ABSOLUTE AUTO 0.15 K/mm3 (0.16-1.47); MONOCYTES PERCENT AUTO 2 % (4-13); Mean Corpuscular HGB 31.5 pg (26.0-34.0); Mean Corpuscular HGB Conc 32.6 g/dL (31.5-36.5); Mean Corpuscular Volume 97 fL (80-100); Mean Platelet Volume 10.3 fL (9.1-12.4); NEUTROPHILS ABSOLUTE AUTO 6.33 K/mm3 (1.96-9.15); NEUTROPHILS PERCENT AUTO 91 % (41-73); Platelet Count 180 K/mm3 (150-400); RDW Standard Deviation 49.3 fL (35.1-46.3); Red Blood Cell Count 4.32 M/mm3 (3.80-5.20); White Blood Cell Count 6.94 K/mm3 (4.00-11.30)
[2022-12-01 04:06] VITALS: BP 141/83
[2022-12-01 07:49] VITALS: BP 145/82
[2022-12-01 11:59] VITALS: BP 118/67
[2022-12-01 18:20] VITALS: BP 140/79
--- NOTE | 2022-12-01 18:26 | NUR ---
SHIFT SUMMARY PT A&OX4. SP02>90% ON 8L HIFLO, PT DID NOT WEAR BIPAP THIS SHIFT. BREATHING TX PER RT. DENIES SOB, THOUGH DESATS TO 80'S W/ ACTIVITY. TELEMETRY SHOWS NSR, HR MOSTLY 80'S-90'S. PT UNABLE TO VOID THIS SHIFT. BLADDER SCAN SHOWED 487. PT HAS BEEN STRAIGHT CATH'D 3 PREVIOUS TIMES. CALL PLACED TO MD SUTTON. MD SUTTON W/ ORDERS TO PLACE MURPHY CATHETER. MURPHY CATHETER PLACED, >700 CLEAR YELLOW URINE OUT. SAMPLE SENT TO LAB. PT AMBULATED SBA TO CHAIR, UP IN CHAIR MOST OF SHIFT. AMBULATED AROUND ROOM A FEW TIMES W/ NO C/O, THOUGH SOB. NO BM. PLAYED CARDS W/ SON PART OF THE DAY. DIET ORDER ADDED TODAY, ABLE TO EAT LUNCH AND DINNER. CALL LIGHT IN REACH. PT RESTING IN BED.
[2022-12-01 18:30] LABS: Source, Urine Foley catheter
[2022-12-01 18:34] LABS: Appearance, Urine Clear (Clear); Bilirubin, Urine Neg (Neg); Blood, Urine Neg (Neg); Color, Urine Yellow (P-Yellow); Glucose Qualitative, Urine Neg (Neg); Ketones, Urine Neg (Neg); Leukocyte Esterase, Urine Neg (Neg); Nitrite, Urine Neg (Neg); Protein, Urine 1+ (Neg); Specific Gravity, Urine 1.015 (1.003-1.022); Urobilinogen, Urine NORM (Normal)
[2022-12-01 20:05] VITALS: BP 165/90
--- NOTE | 2022-12-01 22:48 | NUR ---
ASSUMED PT CARE FROM HOMER MCGUIRE ON . A&OX4 WITH MUMBLING SPEECH AT BASELINE. DENIES FEELING SOB. LUNG GRAHAM DIMINISHED THROUGHOUT. O2 SATS MAINTAINED ON 10 LPM VIA NC WHILE AWAKE, BIPAP WHEN SLEEPING. HR SR/ST 90-100'S. DENIES CHEST PAIN/PRESSURE. BP STABLE, SEE RECORDED VITAL SIGNS. MURPHY CATHETER IN PLACE, DRAINING TO GRAVITY. CALL LIGHT IN REACH. BED ALARM ON.
[2022-12-02] VITALS (8 sets, daily range): BP systolic 118–169; BP diastolic 63–94
[2022-12-02 04:39] LABS: BASOPHILS ABSOLUTE AUTO 0.01 K/mm3 (0.00-0.23); BASOPHILS PERCENT AUTO 0 % (0-2); EOSINOPHILS PERCENT AUTO 0 % (0-6); Hematocrit 42.3 % (33.0-51.0); Hemoglobin 14.1 g/dL (11.5-16.0); IMMATURE GRAN ABSOLUTE AUTO 0.03 K/mm3 (0.00-0.10); IMMATURE GRAN PERCENT AUTO 0 % (0-1); LYMPHOCYTES ABSOLUTE AUTO 0.38 K/mm3 (0.84-5.20); LYMPHOCYTES PERCENT AUTO 5 % (21-46); MONOCYTES ABSOLUTE AUTO 0.29 K/mm3 (0.16-1.47); MONOCYTES PERCENT AUTO 4 % (4-13); Mean Corpuscular HGB 31.8 pg (26.0-34.0); Mean Corpuscular HGB Conc 33.3 g/dL (31.5-36.5); Mean Corpuscular Volume 96 fL (80-100); Mean Platelet Volume 10.5 fL (9.1-12.4); NEUTROPHILS ABSOLUTE AUTO 7.14 K/mm3 (1.96-9.15); NEUTROPHILS PERCENT AUTO 91 % (41-73); Platelet Count 188 K/mm3 (150-400); RDW Coefficient Variation 14.5 % (11.7-14.2); RDW Standard Deviation 50.3 fL (35.1-46.3); Red Blood Cell Count 4.43 M/mm3 (3.80-5.20); White Blood Cell Count 7.85 K/mm3 (4.00-11.30)
[2022-12-02 04:55] LABS: Bun/Creatinine Ratio 42.8 (12.0-20.0); Calcium, Blood 9.6 mg/dL (8.5-10.1); Creatinine, Blood 0.8 mg/dL (0.40-1.00); Potassium, Blood 4.4 mmol/L (3.5-5.5)
--- NOTE | 2022-12-02 05:34 | NUR ---
SHIFT SUMMARY: PT TOLERATING BIPAP FOR MAJORITY OF SHIFT. SLEEPING INTERMITTENTLY. PT ON 10 LPM ON BREAK FROM BIPAP, SATING AT 100%, DECREASED TO 6LPM, WILL CONTINUES TO MONITOR. RESTING IN BED. CALL LIGHT IN REACH. BED IN LOW POSITION.
--- NOTE | 2022-12-02 13:19 | NUR ---
AM NOTES: PT TRANSITIONED TO MEDICAL STATUS NO TELE. PT HAS BEEN TOLERATING 4-6L OF O2 VIA NASAL CANNULA PT STILL DESATS TO 85% WITH EXERTION AND WHEN PT IS TALKING FAST OR EATING OTHERWISE SATS KEPT ABOVE 90%, VITALS HRR ST 100'S, SBP 118-150'S, AFEBRILE. PT HAS BEEN AMBULATING 1PA TO THE RECLINER. SPEECH THERAPIST CAME BY TO SEE PT STARTED ON [facility] SOFT DIET, PT WAS STILL HAVING COUGHING EPISODES WITH GROUND MEAT AND COTTAGE CHEESE, PT WAS ADVISED NO TO EAT THOSE 2 THINGS DUE TO RISK OF ASPIRATION, PT AGREED. NO OTHER ISSUES REPORTED AT THIS TIME. SON WAS IN TO VISIT THIS MORNING PLAYING CARDS WITH THE PT, PT HAS BEEN UP IN THE RECLINER ALL MORNING CALL LIGHTS IN REACH WILL CONTINUE TO MONITOR
--- NOTE | 2022-12-02 17:29 | NUR ---
PT SUMMARY: NO ACUTE CHNAGE SINCE AM NOTES; PT HAS BEEN UP IN THE RECLINER MOST OF THE SHIFT PLAYING CARDS WITH SON AND FAMILY. PT HAS BEEN ON 6L OF O2 VIA HIFLO TOLERATING BETTER WITH EXERTION. THE REST OF THE VITALS REMAINED STABLE. PT DENIES ANY PAIN/DISCOMFORT. MURPHY DRAINING VIA GRAVITY. WILL REPORT TO ONCOMING SHIFT
--- NOTE | 2022-12-02 22:00 | NUR ---
TRANSFER TRANSFERRED TO ROOM 208 FROM PCU, PT IS A&O X3-4, SPO2 >93% ON 4 L O2 VIA NC, DENIES SOB, LUNG SOUNDS DIMISHED BILAT, DENIES PAIN,
--- NOTE | 2022-12-02 22:10 | NUR ---
ASSUMED PT CARE FROM JAY JAY RN ON . A&OX4. DENIES ANY SOB. O2 SATS MAINTAINED > 92% ON 6 LPM VIA NC. HR 92, NO LONGER ON TELE, RHYTHM UNSURE. DENEIS CHEST PAIN. BP STABE, SEE RECORDED VITAL SIGNS. DENIES NAUSEA. MURPHY CATHETER DRAINING TO GRAVITY WITHOUT DIFFICULTY. CALL LIGHT IN REACH. BED IN LOW POSITION.
[2022-12-03 02:46] VITALS: BP 162/83
[2022-12-03 05:08] LABS: BASOPHILS ABSOLUTE AUTO 0.01 K/mm3 (0.00-0.23); BASOPHILS PERCENT AUTO 0 % (0-2); EOSINOPHILS PERCENT AUTO 0 % (0-6); Hematocrit 44.8 % (33.0-51.0); Hemoglobin 15.1 g/dL (11.5-16.0); IMMATURE GRAN ABSOLUTE AUTO 0.04 K/mm3 (0.00-0.10); IMMATURE GRAN PERCENT AUTO 1 % (0-1); LYMPHOCYTES ABSOLUTE AUTO 0.52 K/mm3 (0.84-5.20); LYMPHOCYTES PERCENT AUTO 7 % (21-46); MONOCYTES PERCENT AUTO 14 % (4-13); Mean Corpuscular HGB 31.7 pg (26.0-34.0); Mean Corpuscular HGB Conc 33.7 g/dL (31.5-36.5); Mean Corpuscular Volume 94 fL (80-100); NEUTROPHILS ABSOLUTE AUTO 6.04 K/mm3 (1.96-9.15); NEUTROPHILS PERCENT AUTO 78 % (41-73); RDW Coefficient Variation 14.6 % (11.7-14.2); RDW Standard Deviation 50.5 fL (35.1-46.3); Red Blood Cell Count 4.77 M/mm3 (3.80-5.20); White Blood Cell Count 7.71 K/mm3 (4.00-11.30)
[2022-12-03 05:13] LABS: Albumin, Blood 3.4 g/dL (3.4-5.0); Anion Gap 2 mmol/L (6-16); Blood Urea Nitrogen 26 mg/dL (8-24); Bun/Creatinine Ratio 35.9 (12.0-20.0); CO2, Blood 36 mmol/L (21-32); Calcium, Blood 9.2 mg/dL (8.5-10.1); Chloride, Blood 101 mmol/L (98-108); Creatinine, Blood 0.72 mg/dL (0.40-1.00); Glomerular Filtration Rate 90 (60-); Glucose, Blood 110 mg/dL (70-99); Magnesium, Blood 2.4 mg/dL (1.6-2.4); Phosphorus, Blood 3.2 mg/dL (2.5-4.9); Potassium, Blood 4.5 mmol/L (3.5-5.5); Sodium, Blood 139 mmol/L (136-145)
[2022-12-03 05:15] LABS: Mean Platelet Volume 10.4 fL (9.1-12.4); Platelet Count 146 K/mm3 (150-400)
--- NOTE | 2022-12-03 07:21 | NUR ---
SUMMARY PT IS A&O X4, ANXIOUS & CAN BE UNCOOPERATIVE @TIMES, PT IS ON 4L O2 VIA NC, SBA, CLEAR YELLOW URINE NOTED IN MURPHY, BLADDER TRAINING INITIATED @0550, REPORT GIVEN TO MADAY MCGUIRE, PT IS AWAKE WATCHING TV, CALL LIGHT IN REACH.
[2022-12-03 08:17] VITALS: BP 155/91
[2022-12-03 15:48] VITALS: BP 143/68
[2022-12-03] MEDS ORDERED: PRED20 PO (17:34)
--- NOTE | 2022-12-03 17:54 | NUR ---
DISCHARGED TO HOME WITH SON VIA WHEEL CHAIR. HOSPICE EVAL ON FRIDAY. [facility] DC[facility]D WITH HOME O2 PROVIDED BY SON.
== END 2022-12-03 18:25 | disposition home or self-care (01) | DRG 177 ==
LOC: ER 14:17 → PCU 16:36 → ER 18:05 → PCU 18:15 → SURS 12-02 22:34
PROVIDERS: Family Medicine; Student in an Organized Health Care Education/Training Program; ADMIT Internal Medicine
PROC: 5A09457 Assistance with Respiratory Ventilation, 24-96 Consecutive Hours, Continuous Positive Airway Pressure (ICD-10-PCS; principal; 2022-11-29)
PROC: 5A0935A Assistance with Respiratory Ventilation, Less than 24 Consecutive Hours, High Flow/Velocity Cannula (ICD-10-PCS; 2022-11-30)
DX: J69.0 Pneumonitis due to inhalation of food and vomit (principal); G93.41 Metabolic encephalopathy; J96.21 Acute and chronic respiratory failure with hypoxia; J96.22 Acute and chronic respiratory failure with hypercapnia; J44.1 Chronic obstructive pulmonary disease with (acute) exacerbation; J44.0 Chronic obstructive pulmonary disease with (acute) lower respiratory infection; Z66 Do not resuscitate; I73.9 Peripheral vascular disease, unspecified; Z20.822 Contact with and (suspected) exposure to COVID-19; F10.11 Alcohol abuse, in remission; G40.909 Epilepsy, unspecified, not intractable, without status epilepticus; E78.00 Pure hypercholesterolemia, unspecified; Z98.890 Other specified postprocedural states; Z79.899 Other long term (current) drug therapy; Z79.51 Long term (current) use of inhaled steroids; Z87.820 Personal history of traumatic brain injury; Z98.51 Tubal ligation status; Z86.79 Personal history of other diseases of the circulatory system
CPT/HCPCS: 0241U; 36415; 71045; 80048; 80053; 80069; 82803; 83735; 83880; 84145; 84484; 85025; 92526; 92610; 93005; 93010; 94640; 94660; 94664; 94760; 94762; 96365; 96366; 96368; 96375; 99285-25; A9270; J0456; J0696; J1650; J2930; J3475; J7050